=== PATIENT | female | born 1960 | race Caucasian/White ===

== ENCOUNTER 2018-01-19 01:54 | Emergency (ER) | payer BC ==
--- NOTE | 2018-01-19 02:36 | EDM.PDOC ---
ED HPI GENERAL MEDICAL PROBLEM - General Chief Complaint: ENT Problem Stated Complaint: POSSIBLE EAR INFECTION Time Seen by Provider: 01/19/18 02:11 Source of Information: Reports: Patient, Family () History Limitations: Reports: No Limitations - History of Present Illness INITIAL COMMENTS - FREE TEXT/NARRATIVE: The patient states that she has had nasal congestion and rhinorrhea, and a dry cough since last week. No recent fever. She is taking Mucomyst [place], and , this morning, Flonase, with questionable relief. She states that her nasal congestion became worse on 01/16/2018, then last night around 21:30, she developed right ear pain. She went to bed. She states that she rolled over around midnight, and her right ear pain became significantly worse. No drainage from the ear. She reports decreased hearing in her right ear. No prior similar symptoms. The patient's PCP is Yana Dominique. Right Ear Pain Score (Numeric/FACES): 8 - Related Data Allergies Allergy/AdvReac Type Severity Reaction Status Date / Time latex Allergy Rash Verified 01/19/18 02:06 Home Meds: Home Meds Lisinopril 10 mg PO DAILY 01/19/18 [History] Past Medical History HEENT History: Reports: Allergic Rhinitis Cardiovascular History: Reports: Hypertension - Past Surgical History HEENT Surgical History: Reports: Tonsillectomy Female Surgical History: Reports: Hysterectomy, Other (See Below) (Bladder neck fascial sling) Social & Family History - Family History Family Medical History: Noncontributory - Tobacco Use Smoking Status *Q: Never Smoker - Alcohol Use Alcohol Use History: Yes Alcohol Use Frequency: Socially - Recreational Drug Use Recreational Drug Use: No - Living Situation & Occupation Living situation: Reports: , with Spouse 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 ED EXAM, ENT - Physical Exam Exam: See Below Exam Limited By: No Limitations General Appearance: Alert, WD/WN, No Apparent Distress Eye Exam: Bilateral Eye: Normal Inspection Ears: Normal External Exam, Other (Left external canal and tympanic membrane normal. Right external canal normal, but significant erythema to the right tympanic membrane. Clear fluid is seen behind the TM. The TM is likely bulging.) Nose: Normal Inspection, No Blood, Other (Bilateral nasal mucosal edema) Mouth/Throat: Normal Inspection, Normal Gums, Normal Lips, Normal Oropharynx, Normal Teeth Head: Atraumatic, Normocephalic Neck: Normal Inspection, Supple, Non-Tender, Full Range of Motion. No: Lymphadenopathy (L), Lymphadenopathy (R) Respiratory/Chest: No Respiratory Distress, Lungs Clear, Normal Breath Sounds, No Accessory Muscle Use Cardiovascular: Normal Peripheral Pulses, Regular Rate, Rhythm, No Edema, No Gallop, No JVD, No Murmur, No Rub GI/Abdominal: Normal Bowel Sounds, Soft, Non-Tender, No Organomegaly, No Distention, No Abnormal Bruit, No Mass (Female) Exam: Deferred Rectal (Female) Exam: Deferred Extremities: Normal Inspection, Normal Range of Motion, No Pedal Edema, Normal Capillary Refill Neurological: Alert, Oriented, Normal Cognition, No Motor/Sensory Deficits Psychiatric: Normal Affect Skin: Warm, Dry, Intact, Normal Color, No Rash Course - Vital Signs Last Recorded V/S: Last Vital Signs Temp 36.5 C 01/19/18 02:04 Pulse 82 01/19/18 02:04 Resp 18 01/19/18 02:04 BP 201/98 H 01/19/18 02:04 Pulse Ox 98 01/19/18 02:04 - Re-Assessments/Exams Free Text/Narrative Re-Assessment/Exam: 01/19/18 02:25 The patient appears to have right serous otitis media, likely secondary to a viral URI, but possibly related to allergic rhinitis. The patient is already taking Flonase, which I would encourage her to continue, but in order to get prompt relief of her ear pain, I'm recommending she use gkpr-slc-cusmaug oxymetazoline nasal spray, in addition to nasal saline spray. Departure - Departure Time of Disposition: 02:26 Disposition: Home, Self-Care 01 Condition: Good Clinical Impression: Acute serous otitis media, right ear, Viral URI with cough - Discharge Information Instructions: Otitis Media, Adult, [id number], Upper Respiratory Infection, Adult, [id number]-[id number] Referrals: Yana Dominique, [employer] [Primary Care Provider] - Forms: ED Department Discharge Additional Instructions: You were seen in the emergency room for right ear pain. On examination, you appear to have serous otitis media of the right ear. This is caused by fluid being trapped in your middle ear. It is not an infection, therefore antibiotics are not indicated. Purchase oics-cgc-xzdtqzu oxymetazoline in a "pump mist" bottle. [place] one spray up each nostril, wait 5 minutes, then spray a second spray up each nostril. Repeat every 12 hours, for maximum of 5 days. Also purchase fbwu-qni-bjbogtt nasal saline spray in a pressurized can, such as "Simply Saline". [place] this up each nostril many times per day. You may continue to use Flonase nasal spray. Take zrca-thm-riulnvz ibuprofen as needed for discomfort. If your symptoms persist into next week, please follow-up with your PCP, Yana Dominique. If any other problems, please do not hesitate to return to the ER.
== END 2018-01-19 02:40 | disposition home or self-care (01) ==
LOC: JD.ED 01:54
DX: J06.9 Acute upper respiratory infection, unspecified (principal); H65.01 Acute serous otitis media, right ear; Z91.040 Latex allergy status
CPT/HCPCS: 99282; 99283

== ENCOUNTER 2018-01-20 04:33 | Inpatient (IN) | payer BC ==
--- NOTE | 2018-01-20 05:15 | EDM.PDOC ---
<Tommy Guzman - Last Filed: 01/20/18 06:40> ED HPI GENERAL MEDICAL PROBLEM - General Chief Complaint: Gastrointestinal Problem Stated Complaint: HIGH FEVER THROWING UP EAR ACHE Time Seen by Provider: 01/20/18 04:51 Source of Information: Reports: Patient, Family () History Limitations: Reports: No Limitations - History of Present Illness INITIAL COMMENTS - FREE TEXT/NARRATIVE: The patient was seen by me in this ED early yesterday morning, with a complaint of nasal congestion, rhinorrhea, and dry cough since last week. No fever. She had been taking qauc-bjr-xyohuvk Mucomyst, [place], and Flonase, with questionable relief. Her congestion became worse on 01/16/2018, and then on Tuesday evening, 01/18/2018, she developed right ear pain. Her pain became significantly worse, prompting her ED visit early yesterday morning. At that time, there has not been any drainage from the ear, but she did have decreased hearing in the right ear. On physical examination, the patient had findings consistent with serous otitis media, with erythema and bulging of the tympanic membrane, but no purulence. I recommended phdk-yyt-niklrvl oxymetazoline nasal spray as well as saline nasal spray, which the patient states she purchased shortly after discharge, and used as directed. She states that she initially had relief of her symptoms, however, yesterday morning she developed bloody drainage from the ear. She followed up with her PCP, Yana Dominique, who found that the patient's tympanic membrane had ruptured. Ear drops were prescribed. The patient tells me that she has had watery diarrhea for the past 2 days, along with nausea and emesis that began yesterday. She developed a fever tonight , possibly around 104 at home, although 101.1 here in the ED. The patient had taken ibuprofen yesterday morning, but none since. The patient denies having a sore throat. The patient clarifies that she has had a cough occasionally productive of yellow sputum for about 2 weeks. She denies having any urinary symptoms. She has upper abdominal pain only when vomiting. Here in the ED, the patient is found to be tachycardic. The patient did receive an influenza vaccine this season. - Related Data Allergies Allergy/AdvReac Type Severity Reaction Status Date / Time latex Allergy Rash Verified 01/19/18 02:06 Home Meds: Home Meds Lisinopril 10 mg PO DAILY 01/19/18 [History] Past Medical History HEENT History: Reports: Allergic Rhinitis Cardiovascular History: Reports: Hypertension - Past Surgical History HEENT Surgical History: Reports: Tonsillectomy Female Surgical History: Reports: Hysterectomy, Other (See Below) (Bladder neck fascial sling) Social & Family History - Family History Family Medical History: Noncontributory - Tobacco Use Smoking Status *Q: Never Smoker Second Hand Smoke Exposure: No - Alcohol Use Alcohol Use History: Yes Alcohol Use Frequency: Socially - Recreational Drug Use Recreational Drug Use: No - Living Situation & Occupation Living situation: Reports: , with Spouse 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 ED EXAM, GENERAL - Physical Exam Exam: See Below Exam Limited By: No Limitations General Appearance: Alert, WD/WN, No Apparent Distress Eye Exam: Bilateral Eye: Normal Inspection Ears: Normal External Exam, Other (Left external canal and TM normal. Right external canal normal, but findings consistent with perforated TM on the right. No blood seen.) Nose: Normal Inspection, No Blood, Other (Bilateral nasal mucosal edema) Throat/Mouth: Normal Inspection, Normal Lips, Normal Teeth, Normal Gums, Normal Oropharynx, Normal Voice, No Airway Compromise Head: Atraumatic, Normocephalic Neck: Normal Inspection, Supple, Non-Tender, Full Range of Motion. No: Lymphadenopathy (L), Lymphadenopathy (R) Respiratory/Chest: No Respiratory Distress, Lungs Clear, Normal Breath Sounds, No Accessory Muscle Use Cardiovascular: Normal Peripheral Pulses, No Edema, No Gallop, No JVD, No Murmur , No Rub, Tachycardia (regular) Peripheral Pulses: 4+: Radial (L), Radial (R) GI/Abdominal: Normal Bowel Sounds, Soft, Non-Tender, No Organomegaly, No Distention, No Abnormal Bruit, No Mass (Female) Exam: Deferred Rectal (Female) Exam: Deferred Back Exam: Normal Inspection, Full Range of Motion, NT Extremities: Normal Inspection, Normal Range of Motion, No Pedal Edema, Normal Capillary Refill Neurological: Alert, Oriented, Normal Cognition, No Motor/Sensory Deficits Psychiatric: Normal Affect Skin Exam: Warm, Dry, Intact, Normal Color, No Rash EKG INTERPRETATION EKG Date: 01/20/18 Time: 04:56 Rhythm: Other (Sinus tachycardia) Rate (Beats/Min): 115 Mcdonald: Normal P-Wave: Present QRS: Normal ST-T: Normal QT: Normal Comparison: NA - No Prior EKG Course - Vital Signs Last Recorded V/S: Last Vital Signs Temp 101.2 F H 01/20/18 04:40 Pulse 132 H 01/20/18 04:40 Resp 16 01/20/18 04:40 BP 141/72 H 01/20/18 04:40 Pulse Ox 93 L 01/20/18 04:40 Orthostatic Blood Pressure [ 124/64 Standing] Orthostatic Blood Pressure [ 126/58 Supine] - Orders/Labs/Meds Orders: Active Orders 24 hr Category Date Time Status EKG Documentation Completion [RC] STAT Care 01/20/18 05:01 Active Orthostatic Vital Signs [RC] STAT Care 01/20/18 05:01 Active Orthostatic Vital Signs [RC] STAT Care 01/20/18 05:16 Active Chest 2V [CR] Stat Exams 01/20/18 05:10 Taken CULTURE BLOOD [BC] Stat Lab 01/20/18 05:12 Ordered CULTURE BLOOD [BC] Stat Lab 01/20/18 05:12 Ordered INFLUENZA A+B AG SCREEN [RM] Stat Lab 01/20/18 05:25 Ordered Sodium Chloride 0.9% [Normal Saline] 500 ml Med 01/20/18 06:45 Active IV .BOLUS cefTRIAXone [Rocephin] 2 gm Med 01/20/18 07:40 Active Sodium Chloride 0.9% [Normal Saline] 100 ml IV ONETIME Blood Culture x2 Reflex Set [OM.PC] Stat Oth 01/20/18 05:12 Ordered Medication Orders Sodium Chloride (Normal Saline) 500 mls @ 300 mls/hr IV .BOLUS ONE Stop: 01/20/18 08:24 Last Admin: 01/20/18 06:48 Dose: 300 mls/hr Ceftriaxone Sodium 2 gm/ (Sodium Chloride) 100 mls @ 100 mls/hr IV ONETIME ONE Stop: 01/20/18 08:39 Labs: Laboratory Tests 01/20/18 01/20/18 01/20/18 Range/Units 05:10 05:10 06:10 WBC 13.58 H (3.98-10.04) K/mm3 RBC 4.48 (3.98-5.22) M/mm3 Hgb 13.5 (11.2-15.7) gm/L Hct 40.2 (34.1-44.9) % MCV 89.7 (79.4-94.8) fl MCH 30.1 (25.6-32.2) pg MCHC 33.6 (32.2-35.5) g/dl RDW Std Deviation 45.9 (36.4-46.3) fL Plt Count 228 (182-369) K/mm3 MPV 9.6 (9.4-12.3) fl Neutrophils % (Manual) 86 H (40-60) % Band Neutrophils % 0 (0-10) % Lymphocytes % (Manual) 5 L (20-40) % Atypical Lymphs % 0 % Monocytes % (Manual) 9 (2-10) % Eosinophils % (Manual) 0 L (0.7-5.8) % Basophils % (Manual) 0 L (0.1-1.2) Platelet Estimate Adequate Plt Morphology Comment Normal RBC Morph Comment Normal Sodium 136 (136-145) mEq/L Potassium 3.5 (3.5-5.1) mEq/L Chloride 97 L (98-107) mEq/L Carbon Dioxide 25 (21-32) mEq/L Anion Gap 17.5 H (5-15) BUN 12 (7-18) mg/dL Creatinine 1.2 H (0.55-1.02) mg/dL Est Cr Clr Drug Dosing 45.74 mL/min Estimated GFR (MDRD) 47 (>60) mL/min BUN/Creatinine Ratio 10.0 L (14-18) Glucose 157 H (74-106) mg/dL Lactic Acid 2.2 H (0.4-2.0) mmol/L Calcium 9.0 (8.5-10.1) mg/dL Magnesium 1.4 L (1.8-2.4) mg/dl Total Bilirubin 0.8 (0.2-1.0) mg/dL AST 29 (15-37) U/L ALT 62 H (14-59) U/L Alkaline Phosphatase 130 H (46-116) U/L Total Protein 7.6 (6.4-8.2) g/dl Albumin 3.8 (3.4-5.0) g/dl Globulin 3.8 gm/dL Albumin/Globulin Ratio 1.0 (1-2) Meds: Medications Generic Name Dose Route Start Last Admin Trade Name Freq PRN Reason Stop Dose Admin Sodium Chloride 500 mls @ 300 mls/hr 01/20/18 06:45 01/20/18 06:48 Normal Saline IV 01/20/18 08:24 300 mls/hr .BOLUS ONE Administration Ceftriaxone Sodium 2 gm/ 100 mls @ 100 mls/hr 01/20/18 07:40 Sodium Chloride IV 01/20/18 08:39 ONETIME ONE Discontinued Medications Generic Name Dose Route Start Last Admin Trade Name Freq PRN Reason Stop Dose Admin Sodium Chloride 1,000 mls @ 999 mls/hr 01/20/18 05:16 01/20/18 05:20 Normal Saline IV 01/20/18 06:16 999 mls/hr ONETIME ONE Administration Magnesium Sulfate 2 gm/ Premix 50 mls @ 50 mls/hr 01/20/18 05:49 01/20/18 06: 49 IV 01/20/18 06:48 50 mls/hr ONETIME ONE Administration Sodium Chloride Confirm 01/20/18 06:44 01/20/18 06:49 Normal Saline Administered 01/20/18 06:45 Not Given Dose 1,000 mls @ as directed .ROUTE .STK-MED ONE - Re-Assessments/Exams Free Text/Narrative Re-Assessment/Exam: 01/20/18 04:50 The patient is orthostatic. She will receive 1 L NS, followed by repeat orthostatics. 01/20/18 05:43 2-view chest radiograph reviewed. Cardiac silhouette is within normal limits. No pulmonary vascular congestion. No pleural effusions. There is an irregular opacity measuring approximately 3 cm x 5 cm in the left lower lungfield as seen on the PA view, but not on the lateral view, suggesting that it may be in the left breast. No pneumothorax. Formal read per the Radiologist pending. I will order a CT of the chest with IV contrast to determine if the opacity seen on the chest radiograph is in the lung or not. 01/20/18 05:50 The patient's magnesium level has returned low at 1.4. I have ordered a 2 g Mg- rider. 01/20/18 06:[address] Gomes, and care of the patient turned over to him at this time, for change of shift. Departure - Departure Disposition: Admitted As Inpatient 68 Clinical Impression: Pneumonia Qualifiers: Pneumonia type: due to unspecified organism Laterality: left Lung location: lower lobe of lung Qualified Code(s): J18.1 - Lobar pneumonia, unspecified organism Right otitis media Qualifiers: Otitis media type: serous Chronicity: acute Recurrence: not specified as recurrent Qualified Code(s): H65.01 - Acute serous otitis media, right ear Tympanic membrane perforation Qualifiers: Laterality: right Qualified Code(s): H72.91 - Unspecified perforation of tympanic membrane, right ear - Discharge Information Referrals: Yana Dominique, [employer] [Primary Care Provider] - Forms: ED Department Discharge - My Orders Last 24 Hours: My Active Orders 01/20/18 06:45 Sodium Chloride 0.9% [Normal Saline] 500 ml IV .BOLUS 01/20/18 07:40 cefTRIAXone [Rocephin] 2 gm Sodium Chloride 0.9% [Normal Saline] 100 ml IV ONETIME - Assessment/Plan Last 24 Hours: My Active Orders 01/20/18 06:45 Sodium Chloride 0.9% [Normal Saline] 500 ml IV .BOLUS 01/20/18 07:40 cefTRIAXone [Rocephin] 2 gm Sodium Chloride 0.9% [Normal Saline] 100 ml IV ONETIME <Fernando Gomes - Last Filed: 01/20/18 07:52> Course - Re-Assessments/Exams Free Text/Narrative Re-Assessment/Exam: 01/20/18 07:[address] Guzman. Her CT shows focal consolidation within the left lung base. Findings most likely due to pneumonia. Follow-up chest x-ray recommended several weeks after clinical therapy is complete to make sure findings resolve. Moderate sized hiatal hernia fatty infiltration is seen within the liver. Her oxygen saturations dropped to 88% here in the ER. I put her on some oxygen and gave her a dose of rocephin 2 grams IV. Her WBC was elevated at 13.58. Her lactic acid was elevated at 2.2. I feel the patient needs to be admitted. I called the hospitalist service and they agreed to the admission. Departure - Departure Time of Disposition: 07:50 Condition: Fair
[2018-01-20] MEDS ORDERED: Sodium Chloride 0.9% 1,000 ML IV ONE (05:16)
[2018-01-20] MEDS ORDERED: Magnesium Sulfate/Water 2 GM in Premix Bag 1 BAG IV ONE (05:49)
[2018-01-20] MEDS ORDERED: Sodium Chloride 0.9% 1,000 ML ONE (06:44)
[2018-01-20] MEDS ORDERED: Sodium Chloride 0.9% 500 ML IV ONE (06:45)
--- NOTE | 2018-01-20 07:12 | CT ---
CT chest Technique: Multiple axial sections through the chest were obtained. Intravenous contrast was utilized. Comparison: No prior chest imaging is available. Findings: Focal area of consolidation is seen within the left lung base with air bronchograms. Lungs otherwise are clear. Moderate sized hiatal hernia is seen. Diffuse fatty infiltration is noted within the liver. No pericardial thickening is seen. Mediastinum and hilar regions show no adenopathy or mass. No axillary adenopathy is seen. No pericardial thickening is noted. Bone window settings were reviewed which shows slight degenerative change within the spine. Impression: 1. Focal consolidation within the left lung base. Findings most likely due to pneumonia. Follow-up chest x-ray recommended several weeks after clinical therapy is complete to make sure findings resolve. 2. Moderate sized hiatal hernia fatty infiltration is seen within the liver. Diagnostic code #3
[2018-01-20] MEDS ORDERED: cefTRIAXone 2 GM in Sodium Chloride 0.9% 100 ML IV ONE (07:40)
[2018-01-20] MEDS ORDERED: Acetaminophen 325 MG Tab PO ONE (07:59)
[2018-01-20] MEDS ORDERED: Sodium Chloride 0.9% 1,000 ML IV SCH (09:30)
--- NOTE | 2018-01-20 10:03 | CR ---
Chest: Two views of the chest were obtained. Comparison: Subsequent chest CT performed later on the same day. Parenchymal density is seen within the left base. Right lung and left upper lung are clear. Heart size and mediastinum are normal. Bony structures are unremarkable. Impression: 1. Left lower lobe parenchymal density most likely representing pneumonia. Diagnostic code #3
--- NOTE | 2018-01-20 11:46 | PCM.HP ---
H&P History of Present Illness - General Date of Service: 01/20/18 Admit Problem/Dx: Admission Diagnosis/Problem Admission Diagnosis/Problem Sepsis - History of Present Illness Initial Comments - Free Text/Narative: 57 year old female with failed antibiotic therapy initially prescribed for eva media; she was seen on two occasions in the ED as well as onec by her PCP. The symptoms have been progressing; she currently describes symptoms that have worsened over 24-48 hours of N/V, F/C as well as malaise. She has had a productive cough of yellow sputum for at least one week. The patient works around [employer], thus sick contact can not be excluded. Her PCP as well as the ED MD documented a perforated right TM. CT of chest confirmed possible LLL infiltrate suggested by a CXR. She received the influenza vaccine this past winter. Onset of Symptoms: Reports: Gradual Symptom Onset Date: 01/11/18 Duration of Symptoms: Reports: Week(s):, Getting Worse Location: Reports: Chest, Generalized Quality: Reports: Same as Previous Episode Severity: Moderate Improves with: Reports: Medication Worsens with: Reports: None Context: Reports: Sick Contact (cannot be excluded) Associated Symptoms: Reports: Chest Pain, cough w sputum, Loss of Appetite, Malaise, Nausea/Vomiting, Shortness of Breath, Weakness - Related Data Allergies/Adverse Reactions: Allergies Allergy/AdvReac Type Severity Reaction Status Date / Time latex Allergy Rash Verified 01/19/18 02:06 Home Medications: Home Meds Lisinopril 10 mg PO DAILY 01/19/18 [History] Ciprofloxacin HCl/Dexameth [Ciprodex Otic Suspension] 4 drop EARRT BID 01/20/18 [History] Escitalopram [Lexapro] 20 mg PO DAILY 01/20/18 [History] Oxymetazoline HCl [Nasal [place]] 1 spray NS BID 01/20/18 [History] Sodium Chloride [Saline Nasal [place]] 1 spray NS ASDIRECTED PRN 01/20/18 [History ] Past Medical History - Past Health History Medical/Surgical History: Denies Medical/Surgical History HEENT History: Reports: Allergic Rhinitis, Otitis Media, Sinusitis, Other (See Below) Other HEENT History: chronic dry eye Cardiovascular History: Reports: Hypertension Respiratory History: Reports: Other (See Below) Other Respiratory History: bronchitis. 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: Psychiatric History: Reports: Anxiety, Depression Other Psychiatric History: help w/ menopause Endocrine/Metabolic History: Reports: None Hematologic History: Reports: Anemia, Iron Deficiency Other Hematologic History: anemia when younger, lifestyle changes - Infectious Disease History Infectious Disease History: Reports: Chicken Pox - Past Surgical History HEENT Surgical History: Reports: Tonsillectomy Cardiovascular Surgical History: Reports: None Respiratory Surgical History: Reports: None GI Surgical History: Reports: None Female Surgical History: Reports: Hysterectomy, Other (See Below) Other Female Surgeries/Procedures: bladder surgery by Dr. 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) H&P Review of Systems - Review of Systems: Review Of Systems: See Below General: Reports: Fever, Chills, Malaise, Weakness, Decreased Appetite HEENT: Reports: No Symptoms Pulmonary: Reports: Shortness of Breath, Wheezing Cardiovascular: Reports: No Symptoms Gastrointestinal: Reports: No Symptoms Genitourinary: Reports: No Symptoms Musculoskeletal: Reports: No Symptoms Skin: Reports: No Symptoms Psychiatric: Reports: No Symptoms Neurological: Reports: No Symptoms Hematologic/Lymphatic: Reports: No Symptoms Immunologic: Reports: No Symptoms Exam - Exam Exam: See Below - Vital Signs Vital Signs: Last Vital Signs Temp 36.9 C 01/20/18 11:36 Pulse 93 01/20/18 11:36 Resp 16 01/20/18 11:36 BP 125/52 L 01/20/18 11:36 Pulse Ox 93 L 01/20/18 11:36 Orthostatic Blood Pressure [ 124/64 Standing] Orthostatic Blood Pressure [ 126/58 Supine] Weight: 72.575 kg - Exam Quality Assessment: Supplemental Oxygen, DVT Prophylaxis General: Alert, Oriented, Cooperative, Mild Distress HEENT: Conjunctiva Clear, Nares Patent, Normal Nasal Septum, Pupils Equal, Pupils Reactive, PERRLA Neck: Trachea Midline Lungs: Normal Respiratory Effort, Decreased Breath Sounds Cardiovascular: Regular Rate, Tachycardia GI/Abdominal Exam: Normal Bowel Sounds, Soft, Non-Tender, No Organomegaly, No Distention (Female) Exam: Deferred Rectal (Female) Exam: Deferred Back Exam: Normal Inspection Extremities: Normal Inspection, Non-Tender, Slow Capillary Refill Skin: Warm Neurological: Cranial Nerves Intact, Normal Speech Neuro Extensive - Mental Status: Alert, Oriented x3, Normal Mood/Affect, Normal Cognition, Memory Intact Neuro Extensive - Motor, Sensory, Reflexes: CN II-XII Intact Psychiatric: Alert, Normal Affect, Normal Mood - Patient Data Lab Results Last 24 hrs: Laboratory Results - last 24 hr 01/20/18 01/20/18 01/20/18 Range/Units 05:10 05:10 06:10 WBC 13.58 H (3.98-10.04) K/mm3 RBC 4.48 (3.98-5.22) M/mm3 Hgb 13.5 (11.2-15.7) gm/L Hct 40.2 (34.1-44.9) % MCV 89.7 (79.4-94.8) fl MCH 30.1 (25.6-32.2) pg MCHC 33.6 (32.2-35.5) g/dl RDW Std Deviation 45.9 (36.4-46.3) fL Plt Count 228 (182-369) K/mm3 MPV 9.6 (9.4-12.3) fl Neutrophils % (Manual) 86 H (40-60) % Band Neutrophils % 0 (0-10) % Lymphocytes % (Manual) 5 L (20-40) % Atypical Lymphs % 0 % Monocytes % (Manual) 9 (2-10) % Eosinophils % (Manual) 0 L (0.7-5.8) % Basophils % (Manual) 0 L (0.1-1.2) Platelet Estimate Adequate Plt Morphology Comment Normal RBC Morph Comment Normal Sodium 136 (136-145) mEq/L Potassium 3.5 (3.5-5.1) mEq/L Chloride 97 L (98-107) mEq/L Carbon Dioxide 25 (21-32) mEq/L Anion Gap 17.5 H (5-15) BUN 12 (7-18) mg/dL Creatinine 1.2 H (0.55-1.02) mg/dL Est Cr Clr Drug Dosing 45.74 mL/min Estimated GFR (MDRD) 47 (>60) mL/min BUN/Creatinine Ratio 10.0 L (14-18) Glucose 157 H (74-106) mg/dL Lactic Acid 2.2 H (0.4-2.0) mmol/L Calcium 9.0 (8.5-10.1) mg/dL Magnesium 1.4 L (1.8-2.4) mg/dl Total Bilirubin 0.8 (0.2-1.0) mg/dL AST 29 (15-37) U/L ALT 62 H (14-59) U/L Alkaline Phosphatase 130 H (46-116) U/L Total Protein 7.6 (6.4-8.2) g/dl Albumin 3.8 (3.4-5.0) g/dl Globulin 3.8 gm/dL Albumin/Globulin Ratio 1.0 (1-2) /18 Range/Units 09:05 WBC (3.98-10.04) K/mm3 RBC (3.98-5.22) M/mm3 Hgb (11.2-15.7) gm/L Hct (34.1-44.9) % MCV (79.4-94.8) fl MCH (25.6-32.2) pg MCHC (32.2-35.5) g/dl RDW Std Deviation (36.4-46.3) fL Plt Count (182-369) K/mm3 MPV (9.4-12.3) fl Neutrophils % (Manual) (40-60) % Band Neutrophils % (0-10) % Lymphocytes % (Manual) (20-40) % Atypical Lymphs % % Monocytes % (Manual) (2-10) % Eosinophils % (Manual) (0.7-5.8) % Basophils % (Manual) (0.1-1.2) Platelet Estimate Plt Morphology Comment RBC Morph Comment Sodium (136-145) mEq/L Potassium (3.5-5.1) mEq/L Chloride (98-107) mEq/L Carbon Dioxide (21-32) mEq/L Anion Gap (5-15) BUN (7-18) mg/dL Creatinine (0.55-1.02) mg/dL Est Cr Clr Drug Dosing mL/min Estimated GFR (MDRD) (>60) mL/min BUN/Creatinine Ratio (14-18) Glucose (74-106) mg/dL Lactic Acid 1.1 (0.4-2.0) mmol/L Calcium (8.5-10.1) mg/dL Magnesium (1.8-2.4) mg/dl Total Bilirubin (0.2-1.0) mg/dL AST (15-37) U/L ALT (14-59) U/L Alkaline Phosphatase (46-116) U/L Total Protein (6.4-8.2) g/dl Albumin (3.4-5.0) g/dl Globulin gm/dL Albumin/Globulin Ratio (1-2) Result Diagrams: 01/21/18 06:10 01/21/18 06:10 [place] Results Last 24 hrs: Microbiology 01/20/18 05:25 Influenza Type A Antigen Screen - Final Nasopharyngeal Swab NEGATIVE INFLUENZA A VIRUS AG Influenza Type B Antigen Screen - Final NEGATIVE INFLUENZA B VIRUS AG Problem List Initiated/Reviewed/Updated: Yes Orders Last 24hrs: Active Orders 24 hr Category Date Time Status Patient Status [ADT] Routine ADT 01/20/18 10:09 Active EKG Documentation Completion [RC] STAT Care 01/20/18 05:01 Active Orthostatic Vital Signs [RC] STAT Care 01/20/18 05:01 Active Orthostatic Vital Signs [RC] STAT Care 01/20/18 05:16 Active CULTURE BLOOD [BC] Stat Lab 01/20/18 05:12 Ordered CULTURE BLOOD [BC] Stat Lab 01/20/18 05:12 Ordered INFLUENZA A+B AG SCREEN [RM] Stat Lab 01/20/18 05:25 Ordered Sodium Chloride 0.9% [Normal Saline] 1,000 ml Med 01/20/18 09:30 Active IV ASDIRECTED Sodium Chloride 0.9% [Normal Saline] 650 ml Med 01/20/18 08:30 Active IV ASDIRECTED Blood Culture x2 Reflex Set [OM.PC] Stat Oth 01/20/18 05:12 Ordered Medication Orders Sodium Chloride (Normal Saline) 650 mls @ 1,000 mls/hr IV ASDIRECTED SARAH Sodium Chloride (Normal Saline) 1,000 mls @ 100 mls/hr IV ASDIRECTED SARAH Last Admin: 01/20/18 09:29 Dose: 100 mls/hr Assessment/Plan Comment:: Impression: LLL infiltrate, CAP Ruptured right TM Acute otitis media Chronic HTN Plan: IVF Antiemetic; advance diet as tolerated. ATB empirically Resp infect work up Droplet Isolation Daily Labs Home meds DVT/GI prophylaxis
[2018-01-20] MEDS ORDERED: Azithromycin 500 MG AdvVial IV SCH (12:00)
[2018-01-20] MEDS ORDERED: Ondansetron 4 MG/2 ML SDV IVPUSH PRN (12:03)
[2018-01-20] MEDS ORDERED: Metoclopramide 10 MG/2 ML SDV IVPUSH PRN (12:03)
[2018-01-20] MEDS: Sodium Chloride 0.9% 1,000 ML IV SCH ×4 (12:16→21:16)
[2018-01-20] MEDS: Azithromycin 500 MG in Sodium Chloride 0.9% 250 ML IV SCH (12:22)
[2018-01-20] MEDS: Enoxaparin 40 MG/0.4 ML Syringe SUBCUT SCH (15:14)
[2018-01-20] MEDS ORDERED: Albuterol/Ipratropium 3.0-0.5 MG/3 ML Neb Soln NEB PRN (18:31)
[2018-01-20] MEDS ORDERED: Albuterol 0.083% 2.5 MG/3 ML Neb Soln NEB PRN (18:34)
[2018-01-20] MEDS: Citalopram 20 MG Tab PO SCH (21:01)
[2018-01-20] MEDS: CIPROFLOXACIN EARRT SCH (21:02)
[2018-01-20] MEDS: DEXAMETHASONE EARRT SCH (21:02)
[2018-01-20] MEDS: Temazepam 7.5 MG Cap PO PRN (21:03)
[2018-01-21] MEDS: guaiFENesin/Dextromethorphan 100-10 MG/5 ML Soln 5 ML Cup PO PRN ×2 (00:33→13:54)
[2018-01-21] MEDS: Sodium Chloride 0.9% 1,000 ML IV SCH (03:41)
[2018-01-21] MEDS ORDERED: cefTRIAXone 2 GM in Sodium Chloride 0.9% 100 ML IV SCH (08:00)
[2018-01-21] MEDS: DEXAMETHASONE EARRT SCH ×2 (08:29→20:41)
[2018-01-21] MEDS: Enoxaparin 40 MG/0.4 ML Syringe SUBCUT SCH (08:29)
[2018-01-21] MEDS: Saccharomyces Boulardii (Probiotic) 250 MG Cap PO SCH (08:29)
[2018-01-21] MEDS: CIPROFLOXACIN EARRT SCH ×2 (08:29→20:41)
[2018-01-21] MEDS: Acetaminophen 325 MG Tab PO PRN ×2 (08:55→16:13)
[2018-01-21] MEDS ORDERED: Citalopram 20 MG Tab PO SCH (09:00)
[2018-01-21] MEDS: Azithromycin 500 MG in Sodium Chloride 0.9% 250 ML IV SCH (11:08)
[2018-01-21] MEDS: Lisinopril 10 MG Tab PO SCH (11:11)
--- NOTE | 2018-01-21 15:47 | PCM.PN ---
- General Info Date of Service: 01/21/18 Functional Status: Reports: Pain Controlled, Tolerating Diet, Ambulating, Urinating - Review of Systems General: Reports: No Symptoms HEENT: Reports: No Symptoms Pulmonary: Reports: No Symptoms Cardiovascular: Reports: No Symptoms Gastrointestinal: Reports: No Symptoms Genitourinary: Reports: No Symptoms Musculoskeletal: Reports: No Symptoms - Patient Data Vitals - Most Recent: Last Vital Signs Temp 36.8 C 01/21/18 11:13 Pulse 82 01/21/18 11:13 Resp 16 01/21/18 11:13 BP 144/77 H 01/21/18 11:13 Pulse Ox 95 01/21/18 11:13 Orthostatic Blood Pressure [ 124/64 Standing] Orthostatic Blood Pressure [ 126/58 Supine] Weight - Most Recent: 72.575 kg I&O - Last 24 Hours: Intake & Output 01/21/18 01/21/18 01/21/18 06:59 14:59 22:59 Intake Total 2632 240 Output Total 3500 Balance -868 240 Lab Results Last 24 Hours: Laboratory Results - last 24 hr 01/21/18 01/21/18 01/21/18 Range/Units 06:10 06:10 06:10 WBC 14.84 H (3.98-10.04) K/mm3 RBC 3.84 L (3.98-5.22) M/mm3 Hgb 11.8 (11.2-15.7) gm/L Hct 35.9 (34.1-44.9) % MCV 93.5 (79.4-94.8) fl MCH 30.7 (25.6-32.2) pg MCHC 32.9 (32.2-35.5) g/dl RDW Std Deviation 50.3 H (36.4-46.3) fL Plt Count 213 (182-369) K/mm3 MPV 9.5 (9.4-12.3) fl Neut % (Auto) 82.1 H (34.0-71.1) % Lymph % (Auto) 11.3 L (19.3-51.7) % [place] % (Auto) 6.1 (4.7-12.5) % Eos % (Auto) 0.1 L (0.7-5.8) Baso % (Auto) 0.1 (0.1-1.2) % Neut # (Auto) 12.16 H (1.56-6.13) K/mm3 Lymph # (Auto) 1.68 (1.18-3.74) K/mm3 [place] # (Auto) 0.91 H (0.24-0.36) K/mm3 Eos # (Auto) 0.02 L (0.04-0.36) K/mm3 Baso # (Auto) 0.02 (0.01-0.08) K/mm3 Manual Slide Review Abnormal smear Sodium 143 (136-145) mEq/L Potassium 3.9 (3.5-5.1) mEq/L Chloride 110 H (98-107) mEq/L Carbon Dioxide 23 (21-32) mEq/L Anion Gap 13.9 (5-15) BUN 8 (7-18) mg/dL Creatinine 0.8 (0.55-1.02) mg/dL Est Cr Clr Drug Dosing 68.61 mL/min Estimated GFR (MDRD) > 60 (>60) mL/min BUN/Creatinine Ratio 10.0 L (14-18) Glucose 114 H (74-106) mg/dL Lactic Acid 1.4 (0.4-2.0) mmol/L Calcium 8.2 L (8.5-10.1) mg/dL Magnesium 2.1 (1.8-2.4) mg/dl C-Reactive Protein 33.4 H* (<1.0) mg/dL [place] Results Last 24 Hours: Microbiology 01/20/18 13:40 Quick Strep Confirmation Culture - Preliminary Throat Group A Streptococcus Rapid Screen - Final NEGATIVE STREP A SCREEN 01/20/18 06:10 Aerobic Blood Culture - Preliminary Blood - Venous NO GROWTH AFTER 1 DAY Anaerobic Blood Culture - Preliminary NO GROWTH AFTER 1 DAY 01/20/18 06:20 Aerobic Blood Culture - Preliminary Blood - Venous - Lab Draw NO GROWTH AFTER 1 DAY Anaerobic Blood Culture - Preliminary NO GROWTH AFTER 1 DAY Med Orders - Current: Current Medications Acetaminophen (Tylenol) 650 mg PO Q6H PRN PRN Reason: Pain/Fever Last Admin: 01/21/18 08:55 Dose: 650 mg Albuterol (Proventil Neb Soln) 2.5 mg NEB Q4HRRT PRN PRN Reason: Shortness of Breath Albuterol/Ipratropium (Duoneb 3.0-0.5 Mg/3 Ml) 3 ml NEB QID PRN PRN Reason: Shortness of Breath Citalopram Hydrobromide (Celexa) 40 mg PO BEDTIME [facility] Last Admin: 01/20/18 21:01 Dose: 40 mg Enoxaparin Sodium (Lovenox) 40 mg SUBCUT DAILY [facility] Last Admin: 01/21/18 08:29 Dose: 40 mg Guaifenesin/Phenylephrine HCl (Robitussin Dm) 10 ml PO QID PRN PRN Reason: cough Last Admin: 01/21/18 13:54 Dose: 10 ml Hydralazine HCl (Apresoline) 20 mg IVPUSH Q6H PRN PRN Reason: Hypertension Azithromycin 500 mg/ Sodium (Chloride) 250 mls @ 250 mls/hr IV Q24H [facility] Last Admin: 01/21/18 11:08 Dose: 250 mls/hr Ceftriaxone Sodium 2 gm/ (Dextrose/Water) 100 mls @ 200 mls/hr IV Q24H [facility] Last Admin: 01/21/18 08:54 Dose: 200 mls/hr Lisinopril (Prinivil) 10 mg PO DAILY [facility] Last Admin: 01/21/18 11:11 Dose: 10 mg Metoclopramide HCl (Reglan) 10 mg IVPUSH Q6H PRN PRN Reason: Nausea/Vomiting Ondansetron HCl (Zofran) 4 mg IVPUSH Q8H PRN PRN Reason: Nausea/Vomiting Ciprofloxacin/Dexamethasone Otic Susp. 0 each EARRT BID [facility] Last Admin: 01/21/18 08:29 Dose: 4 each Saccharomyces Boulardii (Florastor) 250 mg PO DAILY [facility] Last Admin: 01/21/18 08:29 Dose: 250 mg Temazepam (Restoril) 7.5 mg PO BEDTIME PRN PRN Reason: Insomnia Last Admin: 01/20/18 21:03 Dose: 7.5 mg Discontinued Medications Acetaminophen (Tylenol) 975 mg PO NOW ONE Stop: 01/20/18 08:00 Last Admin: 01/20/18 08:05 Dose: 975 mg Azithromycin (Zithromax) 500 mg IV Q24H [facility] Citalopram Hydrobromide (Celexa) 40 mg PO DAILY [facility] Sodium Chloride (Normal Saline) 1,000 mls @ 999 mls/hr IV ONETIME ONE Stop: 01/20/18 06:16 Last Admin: 01/20/18 05:20 Dose: 999 mls/hr Magnesium Sulfate 2 gm/ Premix 50 mls @ 50 mls/hr IV ONETIME ONE Stop: 01/20/18 06:48 Last Admin: 01/20/18 06:49 Dose: 50 mls/hr Sodium Chloride (Normal Saline) 500 mls @ 300 mls/hr IV .BOLUS ONE Stop: 01/20/18 08:24 Last Admin: 01/20/18 06:48 Dose: 300 mls/hr Sodium Chloride (Normal Saline) Confirm Administered Dose 1,000 mls @ as directed .ROUTE .STK-MED ONE Stop: 01/20/18 06:45 Last Admin: 01/20/18 06:49 Dose: Not Given Ceftriaxone Sodium 2 gm/ (Sodium Chloride) 100 mls @ 100 mls/hr IV ONETIME ONE Stop: 01/20/18 08:39 Last Admin: 01/20/18 08:01 Dose: 100 mls/hr Sodium Chloride (Normal Saline) 650 mls @ 1,000 mls/hr IV ASDIRECTED [facility] Sodium Chloride (Normal Saline) 1,000 mls @ 100 mls/hr IV ASDIRECTED [facility] Last Admin: 01/20/18 09:29 Dose: 100 mls/hr Sodium Chloride (Normal Saline) 1,000 mls @ 999 mls/hr IV Q1H [facility] Stop: 01/20/18 13:59 Last Admin: 01/20/18 14:02 Dose: 999 mls/hr Sodium Chloride (Normal Saline) 1,000 mls @ 150 mls/hr IV ASDIRECTED [facility] Last Admin: 01/21/18 03:41 Dose: 150 mls/hr Ceftriaxone Sodium 2 gm/ (Sodium Chloride) 100 mls @ 200 mls/hr IV Q24H [facility] Last Admin: 01/21/18 11:47 Dose: Not Given - Exam Quality Assessment: DVT Prophylaxis General: Alert, Oriented, Cooperative, No Acute Distress HEENT: Pupils Equal, Pupils Reactive, EOMI Neck: Supple, Trachea Midline, No JVD Lungs: Normal Respiratory Effort, Decreased Breath Sounds (L>R), Rhonchi Cardiovascular: Regular Rate GI/Abdominal Exam: Normal Bowel Sounds, Soft, Non-Tender, No Organomegaly, No Distention (Female) Exam: Deferred Back Exam: Normal Inspection Extremities: Normal Inspection Skin: Warm Neurological: No New Focal Deficit Psy/Mental Status: Alert, Normal Affect, Normal Mood - Problem List Review Problem List Initiated/Reviewed/Updated: Yes - My Orders Last 24 Hours: My Active Orders 01/20/18 18:31 Albuterol/Ipratropium [DuoNeb 3.0-0.5 MG/3 ML] 3 ml NEB QID PRN 01/20/18 18:32 RT Aerosol Therapy [RC] ASDIRECTED 01/20/18 18:34 Acetaminophen [Tylenol] 650 mg PO Q6H PRN Albuterol [Proventil Neb Soln] 2.5 mg NEB Q4HRRT PRN 01/20/18 18:35 Activity as Tolerated [RC] .Routine 01/20/18 19:18 Temazepam [Restoril] 7.5 mg PO BEDTIME PRN 01/20/18 20:34 MOHINDER Hose [Antiembolic Hose] [OM.PC] Routine 01/20/18 21:00 Citalopram [Celexa] 40 mg PO BEDTIME Patient's Own Medication [Ptom] 0 each EARRT BID 01/20/18 21:21 RESPIRATORY PANEL BY PCR [MREF] Routine 01/20/18 21:23 Dextromethorphan/guaiFENesin [Robitussin DM] 10 ml PO QID PRN 01/20/18 22:30 Oxygen Therapy [RC] ASDIRECTED 01/21/18 09:00 Saccharomyces Boulardii [Florastor] 250 mg PO DAILY cefTRIAXone [Rocephin] 2 gm Dextrose 5% in Water 100 ml IV Q24H 01/21/18 10:15 Lisinopril [Prinivil] 10 mg PO DAILY 01/21/18 Lunch Soft Diet [DIET] 01/22/18 05:00 BMP [BASIC METABOLIC PANEL,BMP] [CHEM] DAILY CBC WITH AUTO DIFF [HEME] DAILY CRP [C-REACTIVE PROTEIN] [CHEM] DAILY LACTIC ACID [CHEM] DAILY MAGNESIUM [CHEM] DAILY 01/23/18 05:00 BMP [BASIC METABOLIC PANEL,BMP] [CHEM] DAILY CBC WITH AUTO DIFF [HEME] DAILY CRP [C-REACTIVE PROTEIN] [CHEM] DAILY LACTIC ACID [CHEM] DAILY MAGNESIUM [CHEM] DAILY 01/24/18 05:00 BMP [BASIC METABOLIC PANEL,BMP] [CHEM] DAILY CBC WITH AUTO DIFF [HEME] DAILY CRP [C-REACTIVE PROTEIN] [CHEM] DAILY LACTIC ACID [CHEM] DAILY MAGNESIUM [CHEM] DAILY - Plan Plan:: Impression: LLL infiltrate, CAP Ruptured right TM Acute otitis media Chronic HTN Plan: IVF Antiemetic; advance diet as tolerated. ATB empirically Resp infect work up Droplet Isolation Daily Labs Home meds DVT/GI prophylaxis
[2018-01-21] MEDS: hydrALAZINE 20 MG/ML SDV IVPUSH PRN (16:13)
[2018-01-21] MEDS ORDERED: LORazepam 2 MG/ML SDV IVPUSH ONE (17:17)
[2018-01-21] MEDS: Levofloxacin/Dextrose 5%-Water 750 MG in Premix Bag 1 BAG IV SCH (17:41)
[2018-01-21] MEDS ORDERED: Morphine 2 MG/ML Syringe IVPUSH ONE (17:43)
[2018-01-21] MEDS ORDERED: Sodium Chloride 0.45% 1,000 ML IV SCH (20:15)
[2018-01-21] MEDS: Citalopram 20 MG Tab PO SCH (20:41)
[2018-01-21] MEDS: Albuterol/Ipratropium 3.0-0.5 MG/3 ML Neb Soln NEB SCH (21:08)
[2018-01-22] MEDS: Albuterol/Ipratropium 3.0-0.5 MG/3 ML Neb Soln NEB SCH ×3 (06:40→15:57)
[2018-01-22] MEDS ORDERED: Furosemide 20 MG/2 ML VIAL IVPUSH ONE (07:00)
--- NOTE | 2018-01-22 07:55 | CR ---
Chest: Frontal view of the chest was obtained. Comparison: Prior chest CT of 01/20/18 and chest x-ray of 01/20/18. Increasing consolidation within the left base is seen from previous exam. Right lung remains clear. Heart size and mediastinum are normal. Bony structures are grossly intact. Impression: 1. Increasing consolidation within the left lung base presumably due to enlarging pneumonia. Diagnostic code #3 I agree with preliminary report from [facility], finalized at 01/21/18, 7:55 PM Central Time
[2018-01-22] MEDS: Saccharomyces Boulardii (Probiotic) 250 MG Cap PO SCH (08:48)
[2018-01-22] MEDS: Enoxaparin 40 MG/0.4 ML Syringe SUBCUT SCH (08:50)
[2018-01-22] MEDS: DEXAMETHASONE EARRT SCH ×2 (08:51→20:44)
[2018-01-22] MEDS: CIPROFLOXACIN EARRT SCH ×2 (08:51→20:44)
[2018-01-22] MEDS ORDERED: Piperacillin/Tazobactam 4.5 GM in Sodium Chloride 0.9% 100 ML IV ONE (10:00)
[2018-01-22] MEDS: hydrALAZINE 20 MG/ML SDV IVPUSH PRN ×2 (10:07→21:03)
[2018-01-22] MEDS ORDERED: Scopolamine 1.5 MG Transdermal Patch TRDERM PRN (11:00)
--- NOTE | 2018-01-22 13:47 | PCM.PN ---
- General Info Date of Service: 01/22/18 Subjective Update: The patient developed SOB with elevated HR, and BP. She received treatment including NEB as well as Ativan and MSO4; this ppt nausea. Today those symptoms are resolved however she is slightly anxious after the Neb treatment. A 20 minute family was also held with her daughter and , they are all up to date on her lab results as well as the treatment plan. LOS 96 hours is expected at this time. Functional Status: Reports: Ambulating, Urinating - Review of Systems General: Reports: Weakness, Fatigue, Malaise HEENT: Reports: No Symptoms Pulmonary: Reports: No Symptoms Cardiovascular: Reports: Chest Pain (improved) Gastrointestinal: Reports: No Symptoms Genitourinary: Reports: No Symptoms Musculoskeletal: Reports: No Symptoms Skin: Reports: No Symptoms Neurological: Reports: No Symptoms Psychiatric: Reports: No Symptoms, Anxiety (ptt by albuterol) - Patient Data Vitals - Most Recent: Last Vital Signs Temp 37.1 C 01/22/18 03:46 Pulse 101 H 01/22/18 03:46 Resp 16 01/22/18 03:46 BP 142/89 H 01/22/18 03:46 Pulse Ox 95 01/22/18 10:09 Orthostatic Blood Pressure [ 124/64 Standing] Orthostatic Blood Pressure [ 126/58 Supine] Weight - Most Recent: 72.575 kg I&O - Last 24 Hours: Intake & Output 01/21/18 01/22/18 01/22/18 22:59 06:59 14:59 Intake Total 2450 914 Output Total 2200 2575 Balance 250 -1661 Lab Results Last 24 Hours: Laboratory Results - last 24 hr 01/22/18 01/22/18 01/22/18 Range/Units 06:05 06:05 06:05 WBC 13.65 H (3.98-10.04) K/mm3 RBC 3.96 L (3.98-5.22) M/mm3 Hgb 11.8 (11.2-15.7) gm/L Hct 36.1 (34.1-44.9) % MCV 91.2 (79.4-94.8) fl MCH 29.8 (25.6-32.2) pg MCHC 32.7 (32.2-35.5) g/dl RDW Std Deviation 49.1 H (36.4-46.3) fL Plt Count 271 (182-369) K/mm3 MPV 9.4 (9.4-12.3) fl Neut % (Auto) 86.4 H (34.0-71.1) % Lymph % (Auto) 7.9 L (19.3-51.7) % [place] % (Auto) 5.0 (4.7-12.5) % Eos % (Auto) 0 L (0.7-5.8) Baso % (Auto) 0.1 (0.1-1.2) % Neut # (Auto) 11.79 H (1.56-6.13) K/mm3 Lymph # (Auto) 1.08 L (1.18-3.74) K/mm3 [place] # (Auto) 0.68 H (0.24-0.36) K/mm3 Eos # (Auto) 0.00 L (0.04-0.36) K/mm3 Baso # (Auto) 0.02 (0.01-0.08) K/mm3 Manual Slide Review Abnormal smear Sodium 140 (136-145) mEq/L Potassium 3.4 L (3.5-5.1) mEq/L Chloride 106 (98-107) mEq/L Carbon Dioxide 24 (21-32) mEq/L Anion Gap 13.4 (5-15) BUN 5 L (7-18) mg/dL Creatinine 0.7 (0.55-1.02) mg/dL Est Cr Clr Drug Dosing 78.41 mL/min Estimated GFR (MDRD) > 60 (>60) mL/min BUN/Creatinine Ratio 7.1 L (14-18) Glucose 134 H (74-106) mg/dL POC Glucose (70-105) mg/dL Lactic Acid 1.4 (0.4-2.0) mmol/L Calcium 9.1 (8.5-10.1) mg/dL Magnesium 1.9 (1.8-2.4) mg/dl C-Reactive Protein 21.3 H* (<1.0) mg/dL 01/22/18 Range/Units 07:18 WBC (3.98-10.04) K/mm3 RBC (3.98-5.22) M/mm3 Hgb (11.2-15.7) gm/L Hct (34.1-44.9) % MCV (79.4-94.8) fl MCH (25.6-32.2) pg MCHC (32.2-35.5) g/dl RDW Std Deviation (36.4-46.3) fL Plt Count (182-369) K/mm3 MPV (9.4-12.3) fl Neut % (Auto) (34.0-71.1) % Lymph % (Auto) (19.3-51.7) % [place] % (Auto) (4.7-12.5) % Eos % (Auto) (0.7-5.8) Baso % (Auto) (0.1-1.2) % Neut # (Auto) (1.56-6.13) K/mm3 Lymph # (Auto) (1.18-3.74) K/mm3 [place] # (Auto) (0.24-0.36) K/mm3 Eos # (Auto) (0.04-0.36) K/mm3 Baso # (Auto) (0.01-0.08) K/mm3 Manual Slide Review Sodium (136-145) mEq/L Potassium (3.5-5.1) mEq/L Chloride (98-107) mEq/L Carbon Dioxide (21-32) mEq/L Anion Gap (5-15) BUN (7-18) mg/dL Creatinine (0.55-1.02) mg/dL Est Cr Clr Drug Dosing mL/min Estimated GFR (MDRD) (>60) mL/min BUN/Creatinine Ratio (14-18) Glucose (74-106) mg/dL POC Glucose 140 H (70-105) mg/dL Lactic Acid (0.4-2.0) mmol/L Calcium (8.5-10.1) mg/dL Magnesium (1.8-2.4) mg/dl C-Reactive Protein (<1.0) mg/dL [place] Results Last 24 Hours: Microbiology 01/20/18 13:40 Quick Strep Confirmation Culture - Final Throat NEGATIVE FOR BETA STREP Group A Streptococcus Rapid Screen - Final NEGATIVE STREP A SCREEN 01/20/18 06:20 Aerobic Blood Culture - Preliminary Blood - Venous - Lab Draw NO GROWTH AFTER 2 DAYS Anaerobic Blood Culture - Preliminary NO GROWTH AFTER 2 DAYS 01/20/18 06:10 Aerobic Blood Culture - Preliminary Blood - Venous NO GROWTH AFTER 2 DAYS Anaerobic Blood Culture - Preliminary NO GROWTH AFTER 2 DAYS 01/21/18 16:43 Gram Stain - Final Sputum - Expectorated Sputum Culture - Final Med Orders - Current: Current Medications Acetaminophen (Tylenol) 650 mg PO Q6H PRN PRN Reason: Pain/Fever Last Admin: 01/21/18 16:13 Dose: 650 mg Albuterol (Proventil Neb Soln) 2.5 mg NEB Q4HRRT PRN PRN Reason: Shortness of Breath Last Admin: 01/21/18 17:46 Dose: 2.5 mg Albuterol/Ipratropium (Duoneb 3.0-0.5 Mg/3 Ml) 3 ml NEB QIDRT [facility] Last Admin: 01/22/18 10:09 Dose: 3 ml Citalopram Hydrobromide (Celexa) 40 mg PO BEDTIME [facility] Last Admin: 01/21/18 20:41 Dose: 40 mg Enoxaparin Sodium (Lovenox) 40 mg SUBCUT DAILY [facility] Last Admin: 01/22/18 08:50 Dose: 40 mg Guaifenesin/Phenylephrine HCl (Robitussin Dm) 10 ml PO QID PRN PRN Reason: cough Last Admin: 01/21/18 13:54 Dose: 10 ml Hydralazine HCl (Apresoline) 20 mg IVPUSH Q6H PRN PRN Reason: Hypertension Last Admin: 01/22/18 10:07 Dose: 20 mg Levofloxacin/Dextrose 750 mg/ (Premix) 150 mls @ 100 mls/hr IV Q24H [facility] Last Admin: 01/21/18 17:41 Dose: 100 mls/hr Piperacillin Sod/Tazobactam (Sod 4.5 gm/ Sodium Chloride) 100 mls @ 25 mls/hr IV Q8H [facility] Lisinopril (Prinivil) 10 mg PO DAILY [facility] Last Admin: 01/21/18 11:11 Dose: 10 mg Metoclopramide HCl (Reglan) 10 mg IVPUSH Q6H PRN PRN Reason: Nausea/Vomiting Last Admin: 01/21/18 23:09 Dose: 10 mg Miscellaneous Information (Remove Patch) 1 ea TRDERM Q72H [facility] Ondansetron HCl (Zofran) 4 mg IVPUSH Q8H PRN PRN Reason: Nausea/Vomiting Ciprofloxacin/Dexamethasone Otic Susp. 0 each EARRT BID [facility] Last Admin: 01/22/18 08:51 Dose: 4 each Saccharomyces Boulardii (Florastor) 250 mg PO DAILY [facility] Last Admin: 01/22/18 08:48 Dose: 250 mg Scopolamine (Transderm-Scop) 1.5 mg TRDERM Q72H PRN PRN Reason: Nausea/Vomiting Last Admin: 01/22/18 11:37 Dose: 1.5 mg Temazepam (Restoril) 7.5 mg PO BEDTIME PRN PRN Reason: Insomnia Last Admin: 01/20/18 21:03 Dose: 7.5 mg Discontinued Medications Acetaminophen (Tylenol) 975 mg PO NOW ONE Stop: 01/20/18 08:00 Last Admin: 01/20/18 08:05 Dose: 975 mg Albuterol/Ipratropium (Duoneb 3.0-0.5 Mg/3 Ml) 3 ml NEB QID PRN PRN Reason: Shortness of Breath Azithromycin (Zithromax) 500 mg IV Q24H [facility] Citalopram Hydrobromide (Celexa) 40 mg PO DAILY [facility] Furosemide (Lasix) 10 mg IVPUSH ONETIME ONE Stop: 01/22/18 07:01 Last Admin: 01/22/18 07:26 Dose: 10 mg Sodium Chloride (Normal Saline) 1,000 mls @ 999 mls/hr IV ONETIME ONE Stop: 01/20/18 06:16 Last Admin: 01/20/18 05:20 Dose: 999 mls/hr Magnesium Sulfate 2 gm/ Premix 50 mls @ 50 mls/hr IV ONETIME ONE Stop: 01/20/18 06:48 Last Admin: 01/20/18 06:49 Dose: 50 mls/hr Sodium Chloride (Normal Saline) 500 mls @ 300 mls/hr IV .BOLUS ONE Stop: 01/20/18 08:24 Last Admin: 01/20/18 06:48 Dose: 300 mls/hr Sodium Chloride (Normal Saline) Confirm Administered Dose 1,000 mls @ as directed .ROUTE .STK-MED ONE Stop: 01/20/18 06:45 Last Admin: 01/20/18 06:49 Dose: Not Given Ceftriaxone Sodium 2 gm/ (Sodium Chloride) 100 mls @ 100 mls/hr IV ONETIME ONE Stop: 01/20/18 08:39 Last Admin: 01/20/18 08:01 Dose: 100 mls/hr Sodium Chloride (Normal Saline) 650 mls @ 1,000 mls/hr IV ASDIRECTED [facility] Sodium Chloride (Normal Saline) 1,000 mls @ 100 mls/hr IV ASDIRECTED [facility] Last Admin: 01/20/18 09:29 Dose: 100 mls/hr Sodium Chloride (Normal Saline) 1,000 mls @ 999 mls/hr IV Q1H [facility] Stop: 01/20/18 13:59 Last Admin: 01/20/18 14:02 Dose: 999 mls/hr Azithromycin 500 mg/ Sodium (Chloride) 250 mls @ 250 mls/hr IV Q24H [facility] Last Admin: 01/21/18 11:08 Dose: 250 mls/hr Sodium Chloride (Normal Saline) 1,000 mls @ 150 mls/hr IV ASDIRECTED [facility] Last Admin: 01/21/18 03:41 Dose: 150 mls/hr Ceftriaxone Sodium 2 gm/ (Sodium Chloride) 100 mls @ 200 mls/hr IV Q24H [facility] Last Admin: 01/21/18 11:47 Dose: Not Given Ceftriaxone Sodium 2 gm/ (Dextrose/Water) 100 mls @ 200 mls/hr IV Q24H [facility] Last Admin: 01/21/18 08:54 Dose: 200 mls/hr Sodium Chloride (Sodium Chloride 0.45%) 1,000 mls @ 75 mls/hr IV ASDIRECTED [facility] Last Admin: 01/21/18 21:35 Dose: 75 mls/hr Vancomycin HCl 1 gm/ Sodium (Chloride) 250 mls @ 250 mls/hr IV ONETIME ONE Stop: 01/21/18 21:14 Last Admin: 01/21/18 20:35 Dose: 250 mls/hr Piperacillin Sod/Tazobactam (Sod 4.5 gm/ Sodium Chloride) 100 mls @ 200 mls/hr IV ONETIME ONE Stop: 01/22/18 10:29 Last Admin: 01/22/18 10:55 Dose: 200 mls/hr Lorazepam (Ativan) 1 mg IVPUSH ONETIME ONE Stop: 01/21/18 17:18 Last Admin: 01/21/18 17:41 Dose: 0.5 mg Morphine Sulfate (Morphine) 1 mg IVPUSH ONETIME ONE Stop: 01/21/18 17:44 Last Admin: 01/21/18 18:28 Dose: 1 mg - Exam Quality Assessment: DVT Prophylaxis General: Alert, Oriented, Cooperative, No Acute Distress HEENT: Pupils Equal, Pupils Reactive, EOMI Neck: Trachea Midline, No JVD Lungs: Normal Respiratory Effort, Decreased Breath Sounds Cardiovascular: Regular Rate, Regular Rhythm GI/Abdominal Exam: Normal Bowel Sounds, Soft, Non-Tender, No Organomegaly, No Distention (Female) Exam: Deferred Back Exam: Normal Inspection Extremities: Normal Inspection Skin: Warm Wound/Incisions: Healing Well Neurological: No New Focal Deficit Psy/Mental Status: Alert, Normal Affect, Normal Mood - Problem List Review Problem List Initiated/Reviewed/Updated: Yes - My Orders Last 24 Hours: My Active Orders 01/21/18 17:16 Blood Culture x2 Reflex Set [OM.PC] Stat 01/21/18 17:21 RT Aerosol Therapy [RC] ASDIRECTED 01/21/18 17:35 CULTURE BLOOD [BC] Stat 01/21/18 17:50 CULTURE BLOOD [BC] Stat 01/21/18 18:00 Levofloxacin/Dextrose 5%-Water [Levaquin in D5W 750 MG/150 ML] 750 mg Premix Bag 1 bag IV Q24H 01/21/18 21:00 Albuterol/Ipratropium [DuoNeb 3.0-0.5 MG/3 ML] 3 ml NEB QIDRT 01/22/18 11:00 Scopolamine [Transderm-Scop] 1.5 mg TRDERM Q72H PRN 01/22/18 18:00 Piperacillin/Tazobactam [Zosyn] 4.5 gm Sodium Chloride 0.9% [Normal Saline] 100 ml IV Q8H 01/22/18 Lunch Full Liquid Diet [DIET] 01/23/18 05:00 BMP [BASIC METABOLIC PANEL,BMP] [CHEM] DAILY CBC WITH AUTO DIFF [HEME] DAILY CRP [C-REACTIVE PROTEIN] [CHEM] DAILY LACTIC ACID [CHEM] DAILY MAGNESIUM [CHEM] DAILY 01/24/18 05:00 BMP [BASIC METABOLIC PANEL,BMP] [CHEM] DAILY CBC WITH AUTO DIFF [HEME] DAILY CRP [C-REACTIVE PROTEIN] [CHEM] DAILY LACTIC ACID [CHEM] DAILY MAGNESIUM [CHEM] DAILY 01/25/18 11:00 Remove Patch 1 ea TRDERM Q72H - Plan Plan:: Impression: LLL infiltrate, CAP; hypoxia resolved after yesterday Nocturnal hypoxia, query sleep apnea. Ruptured right TM Acute otitis media Chronic HTN Plan: IVF Antiemetic; advance diet as tolerated. ATB empirically changed to Levoquin and Zosyn after yesterday, decompensated Scopolamine patch for N/V Resp infect work up Droplet Isolation Daily Labs Home meds DVT/GI prophylaxis
[2018-01-22] MEDS ORDERED: Piperacillin/Tazobactam 4.5 GM in Sodium Chloride 0.9% 100 ML IV SCH (18:00)
[2018-01-22] MEDS ORDERED: Levofloxacin/Dextrose 5%-Water 150 ML IV ONE (18:14)
[2018-01-22] MEDS: Levofloxacin/Dextrose 5%-Water 750 MG in Premix Bag 1 BAG IV SCH (18:37)
[2018-01-22] MEDS: Levalbuterol HCl 1.25 MG/3 ML Neb NEB SCH (20:22)
[2018-01-22] MEDS: Citalopram 20 MG Tab PO SCH (20:43)
[2018-01-22] MEDS: Metoclopramide 10 MG/2 ML SDV IVPUSH SCH (20:44)
[2018-01-22] MEDS: Piperacillin/Tazobactam 4.5 GM in Sodium Chloride 0.9% 100 ML IV SCH (21:51)
[2018-01-22] MEDS: Temazepam 7.5 MG Cap PO PRN (22:39)
[2018-01-23] MEDS: Metoclopramide 10 MG/2 ML SDV IVPUSH SCH (05:47)
[2018-01-23] MEDS: Piperacillin/Tazobactam 4.5 GM in Sodium Chloride 0.9% 100 ML IV SCH (05:52)
[2018-01-23] MEDS: Levalbuterol HCl 1.25 MG/3 ML Neb NEB SCH (06:30)
--- NOTE | 2018-01-23 08:34 | PCM.PN ---
- General Info Date of Service: 01/23/18 Admission Dx/Problem (Free Text): Admission Diagnosis/Problem Admission Diagnosis/Problem Sepsis Subjective Update: In to see Fatou. She is lying in bed. She reports good appetite and no nausea. She is not dizzy at this point. Will advance diet to soft. PT examination ordered due to perforated ear drum and history with nausea/dizziness. She still has a productive cough. Unfortunately her prior sputum sample was insufficient. Will re-order sample. Potassium was quite low at 3.1. Attempted IV supplementation, however she did not tolerate this. Switching to oral supplementation. Labs are improving. She was quite tachycardic with Xopenex so will discontinue that and try just ipratropium. No patient or nursing concerns. Functional Status: Reports: Pain Controlled, Tolerating Diet, Ambulating, Urinating. Denies: New Symptoms - Review of Systems General: Reports: Weakness (improving ), Fatigue (improving ), Malaise ( improving ), Appetite. Denies: Fever HEENT: Reports: Ear Pain. Denies: Eye Pain, Headaches, Sinus Congestion, Sore Throat Pulmonary: Reports: Cough, Sputum. Denies: Shortness of Breath, Wheezing Cardiovascular: Reports: No Symptoms. Denies: Chest Pain, Palpitations, Dyspnea on Exertion, Edema, Lightheadedness Gastrointestinal: Reports: Diarrhea (mild loose stools this AM ). Denies: Abdominal Pain, Constipation, Nausea, Vomiting Genitourinary: Reports: No Symptoms, Dysuria Musculoskeletal: Reports: No Symptoms Skin: Reports: No Symptoms Neurological: Reports: No Symptoms, Change in Speech. Denies: Dizziness, Pre- Existing Deficit, Tingling, Trouble Speaking, Difficulty Walking, Gait Disturbance Psychiatric: Reports: No Symptoms - Patient Data Vitals - Most Recent: Last Vital Signs Temp 98.6 F 01/23/18 01:51 Pulse 101 H 01/23/18 01:51 Resp 18 01/23/18 01:51 BP 126/62 01/23/18 01:51 Pulse Ox 95 01/23/18 02:00 Orthostatic Blood Pressure [ 124/64 Standing] Orthostatic Blood Pressure [ 126/58 Supine] Weight - Most Recent: 165 lb I&O - Last 24 Hours: Intake & Output 01/22/18 01/23/18 01/23/18 22:59 06:59 14:59 Intake Total 7996 1040 Output Total 1934 0715 Balance -1554 -210 Lab Results Last 24 Hours: Laboratory Results - last 24 hr 01/23/18 01/23/18 01/23/18 Range/Units 05:40 05:40 05:40 WBC 12.21 H (3.98-10.04) K/mm3 RBC 3.85 L (3.98-5.22) M/mm3 Hgb 11.6 (11.2-15.7) gm/L Hct 34.8 (34.1-44.9) % MCV 90.4 (79.4-94.8) fl MCH 30.1 (25.6-32.2) pg MCHC 33.3 (32.2-35.5) g/dl RDW Std Deviation 48.0 H (36.4-46.3) fL Plt Count 319 (182-369) K/mm3 MPV 9.5 (9.4-12.3) fl Neut % (Auto) 79.1 H (34.0-71.1) % Lymph % (Auto) 11.2 L (19.3-51.7) % [place] % (Auto) 7.0 (4.7-12.5) % Eos % (Auto) 0.3 L (0.7-5.8) Baso % (Auto) 0.2 (0.1-1.2) % Neut # (Auto) 9.65 H (1.56-6.13) K/mm3 Lymph # (Auto) 1.37 (1.18-3.74) K/mm3 [place] # (Auto) 0.86 H (0.24-0.36) K/mm3 Eos # (Auto) 0.04 (0.04-0.36) K/mm3 Baso # (Auto) 0.02 (0.01-0.08) K/mm3 Manual Slide Review Abnormal smear Sodium 141 (136-145) mEq/L Potassium 3.1 L (3.5-5.1) mEq/L Chloride 106 (98-107) mEq/L Carbon Dioxide 25 (21-32) mEq/L Anion Gap 13.1 (5-15) BUN 7 (7-18) mg/dL Creatinine 0.8 (0.55-1.02) mg/dL Est Cr Clr Drug Dosing 68.61 mL/min Estimated GFR (MDRD) > 60 (>60) mL/min BUN/Creatinine Ratio 8.8 L (14-18) Glucose 108 H (74-106) mg/dL Lactic Acid 0.7 (0.4-2.0) mmol/L Calcium 9.1 (8.5-10.1) mg/dL Magnesium 1.9 (1.8-2.4) mg/dl C-Reactive Protein 11.9 H* (<1.0) mg/dL [place] Results Last 24 Hours: Microbiology 01/20/18 06:20 Aerobic Blood Culture - Preliminary Blood - Venous - Lab Draw NO GROWTH AFTER 3 DAYS Anaerobic Blood Culture - Preliminary NO GROWTH AFTER 3 DAYS 01/20/18 06:10 Aerobic Blood Culture - Preliminary Blood - Venous NO GROWTH AFTER 3 DAYS Anaerobic Blood Culture - Preliminary NO GROWTH AFTER 3 DAYS 01/21/18 17:50 Aerobic Blood Culture - Preliminary Blood - Venous - Lab Draw NO GROWTH AFTER 1 DAY Anaerobic Blood Culture - Preliminary NO GROWTH AFTER 1 DAY 01/21/18 17:35 Aerobic Blood Culture - Preliminary Blood - Venous NO GROWTH AFTER 1 DAY Anaerobic Blood Culture - Preliminary NO GROWTH AFTER 1 DAY 01/20/18 13:40 Quick Strep Confirmation Culture - Final Throat NEGATIVE FOR BETA STREP Group A Streptococcus Rapid Screen - Final NEGATIVE STREP A SCREEN Med Orders - Current: Current Medications Acetaminophen (Tylenol) 650 mg PO Q6H PRN PRN Reason: Pain/Fever Last Admin: 01/21/18 16:13 Dose: 650 mg Albuterol (Proventil Neb Soln) 2.5 mg NEB Q4HRRT PRN PRN Reason: Shortness of Breath Last Admin: 01/21/18 17:46 Dose: 2.5 mg Citalopram Hydrobromide (Celexa) 40 mg PO BEDTIME [facility] Last Admin: 01/22/18 20:43 Dose: 40 mg Enoxaparin Sodium (Lovenox) 40 mg SUBCUT DAILY [facility] Last Admin: 01/22/18 08:50 Dose: 40 mg Guaifenesin/Phenylephrine HCl (Robitussin Dm) 10 ml PO QID PRN PRN Reason: cough Last Admin: 01/21/18 13:54 Dose: 10 ml Hydralazine HCl (Apresoline) 20 mg IVPUSH Q6H PRN PRN Reason: Hypertension Last Admin: 01/22/18 21:03 Dose: 20 mg Levofloxacin/Dextrose 750 mg/ (Premix) 150 mls @ 100 mls/hr IV Q24H [facility] Last Admin: 01/22/18 18:37 Dose: 100 mls/hr Piperacillin Sod/Tazobactam (Sod 4.5 gm/ Sodium Chloride) 100 mls @ 25 mls/hr IV Q8H [facility] Last Admin: 01/23/18 05:52 Dose: 25 mls/hr Ipratropium [place] (Atrovent) 0.5 mg NEB Q6H [facility] Lisinopril (Prinivil) 10 mg PO DAILY [facility] Last Admin: 01/21/18 11:11 Dose: 10 mg Metoclopramide HCl (Reglan) 10 mg IVPUSH Q6H PRN PRN Reason: Nausea/Vomiting Last Admin: 01/21/18 23:09 Dose: 10 mg Metoclopramide HCl (Reglan) 10 mg IVPUSH BID@0600,2100 [facility] Last Admin: 01/23/18 05:47 Dose: 10 mg Miscellaneous Information (Remove Patch) 1 ea TRDERM Q72H [facility] Ondansetron HCl (Zofran) 4 mg IVPUSH Q8H PRN PRN Reason: Nausea/Vomiting Last Admin: 01/22/18 18:27 Dose: 4 mg Ciprofloxacin/Dexamethasone Otic Susp. 0 each EARRT BID [facility] Last Admin: 01/22/18 20:44 Dose: 4 each Saccharomyces Boulardii (Florastor) 250 mg PO DAILY [facility] Last Admin: 01/22/18 08:48 Dose: 250 mg Scopolamine (Transderm-Scop) 1.5 mg TRDERM Q72H PRN PRN Reason: Nausea/Vomiting Last Admin: 01/22/18 11:37 Dose: 1.5 mg Temazepam (Restoril) 7.5 mg PO BEDTIME PRN PRN Reason: Insomnia Last Admin: 01/22/18 22:39 Dose: 7.5 mg Discontinued Medications Acetaminophen (Tylenol) 975 mg PO NOW ONE Stop: 01/20/18 08:00 Last Admin: 01/20/18 08:05 Dose: 975 mg Albuterol/Ipratropium (Duoneb 3.0-0.5 Mg/3 Ml) 3 ml NEB QID PRN PRN Reason: Shortness of Breath Albuterol/Ipratropium (Duoneb 3.0-0.5 Mg/3 Ml) 3 ml NEB QIDRT [facility] Last Admin: 01/22/18 15:57 Dose: 3 ml Azithromycin (Zithromax) 500 mg IV Q24H [facility] Citalopram Hydrobromide (Celexa) 40 mg PO DAILY [facility] Furosemide (Lasix) 10 mg IVPUSH ONETIME ONE Stop: 01/22/18 07:01 Last Admin: 01/22/18 07:26 Dose: 10 mg Sodium Chloride (Normal Saline) 1,000 mls @ 999 mls/hr IV ONETIME ONE Stop: 01/20/18 06:16 Last Admin: 01/20/18 05:20 Dose: 999 mls/hr Magnesium Sulfate 2 gm/ Premix 50 mls @ 50 mls/hr IV ONETIME ONE Stop: 01/20/18 06:48 Last Admin: 01/20/18 06:49 Dose: 50 mls/hr Sodium Chloride (Normal Saline) 500 mls @ 300 mls/hr IV .BOLUS ONE Stop: 01/20/18 08:24 Last Admin: 01/20/18 06:48 Dose: 300 mls/hr Sodium Chloride (Normal Saline) Confirm Administered Dose 1,000 mls @ as directed .ROUTE .STK-MED ONE Stop: 01/20/18 06:45 Last Admin: 01/20/18 06:49 Dose: Not Given Ceftriaxone Sodium 2 gm/ (Sodium Chloride) 100 mls @ 100 mls/hr IV ONETIME ONE Stop: 01/20/18 08:39 Last Admin: 01/20/18 08:01 Dose: 100 mls/hr Sodium Chloride (Normal Saline) 650 mls @ 1,000 mls/hr IV ASDIRECTED [facility] Sodium Chloride (Normal Saline) 1,000 mls @ 100 mls/hr IV ASDIRECTED [facility] Last Admin: 01/20/18 09:29 Dose: 100 mls/hr Sodium Chloride (Normal Saline) 1,000 mls @ 999 mls/hr IV Q1H [facility] Stop: 01/20/18 13:59 Last Admin: 01/20/18 14:02 Dose: 999 mls/hr Azithromycin 500 mg/ Sodium (Chloride) 250 mls @ 250 mls/hr IV Q24H [facility] Last Admin: 01/21/18 11:08 Dose: 250 mls/hr Sodium Chloride (Normal Saline) 1,000 mls @ 150 mls/hr IV ASDIRECTED [facility] Last Admin: 01/21/18 03:41 Dose: 150 mls/hr Ceftriaxone Sodium 2 gm/ (Sodium Chloride) 100 mls @ 200 mls/hr IV Q24H [facility] Last Admin: 01/21/18 11:47 Dose: Not Given Ceftriaxone Sodium 2 gm/ (Dextrose/Water) 100 mls @ 200 mls/hr IV Q24H [facility] Last Admin: 01/21/18 08:54 Dose: 200 mls/hr Sodium Chloride (Sodium Chloride 0.45%) 1,000 mls @ 75 mls/hr IV ASDIRECTED [facility] Last Admin: 01/21/18 21:35 Dose: 75 mls/hr Vancomycin HCl 1 gm/ Sodium (Chloride) 250 mls @ 250 mls/hr IV ONETIME ONE Stop: 01/21/18 21:14 Last Admin: 01/21/18 20:35 Dose: 250 mls/hr Piperacillin Sod/Tazobactam (Sod 4.5 gm/ Sodium Chloride) 100 mls @ 25 mls/hr IV Q8H [facility] Last Admin: 01/22/18 19:44 Dose: Not Given Piperacillin Sod/Tazobactam (Sod 4.5 gm/ Sodium Chloride) 100 mls @ 200 mls/hr IV ONETIME ONE Stop: 01/22/18 10:29 Last Admin: 01/22/18 10:55 Dose: 200 mls/hr Levalbuterol HCl (Xopenex) 1.25 mg NEB Q6HRRT [facility] Last Admin: 01/23/18 06:30 Dose: Not Given Lorazepam (Ativan) 1 mg IVPUSH ONETIME ONE Stop: 01/21/18 17:18 Last Admin: 01/21/18 17:41 Dose: 0.5 mg Morphine Sulfate (Morphine) 1 mg IVPUSH ONETIME ONE Stop: 01/21/18 17:44 Last Admin: 01/21/18 18:28 Dose: 1 mg - Exam Quality Assessment: DVT Prophylaxis General: Alert, Oriented, Cooperative, No Acute Distress HEENT: Pupils Equal, Pupils Reactive, EOMI, Mucous Membr. Moist/[place] Neck: Supple, Trachea Midline, No JVD Lungs: Clear to Auscultation, Normal Respiratory Effort Cardiovascular: Regular Rate, Regular Rhythm GI/Abdominal Exam: Normal Bowel Sounds, Soft, Non-Tender, No Organomegaly, No Distention, No Abnormal Bruit, No Mass, Pelvis Stable (Female) Exam: Deferred Back Exam: Normal Inspection, Full Range of Motion Extremities: Normal Inspection, Normal Range of Motion, Non-Tender, No Pedal Edema, Normal Capillary Refill Peripheral Pulses: 1+: Posterior Tibial (L), Posterior Tibial (R), Dorsalis Pedis (L), Dorsalis Pedis (R), 2+: Radial (L), Radial (R) Skin: Warm, Dry, Intact Neurological: No New Focal Deficit Psy/Mental Status: Alert, Normal Affect, Normal Mood - Problem List & Annotations (1) Pneumonia SNOMED Code(s): 769943794 Code(s): J18.9 - PNEUMONIA, UNSPECIFIED ORGANISM Status: Acute Current Visit: Yes Qualifiers: Pneumonia type: due to unspecified organism Laterality: left Lung location: lower lobe of lung Qualified Code(s): J18.1 - Lobar pneumonia, unspecified organism (2) Right otitis media SNOMED Code(s): 71833233 Code(s): H66.91 - OTITIS MEDIA, UNSPECIFIED, RIGHT EAR Status: Acute Current Visit: Yes Qualifiers: Otitis media type: serous Chronicity: acute Recurrence: not specified as recurrent Qualified Code(s): H65.01 - Acute serous otitis media, right ear (3) Tympanic membrane perforation SNOMED Code(s): 94299799 Code(s): H72.90 - UNSP PERFORATION OF TYMPANIC MEMBRANE, UNSPECIFIED EAR Status: Acute Current Visit: Yes Qualifiers: Laterality: right Qualified Code(s): H72.91 - Unspecified perforation of tympanic membrane, right ear (4) Acute serous otitis media, right ear SNOMED Code(s): 965031533 Code(s): H65.01 - ACUTE SEROUS OTITIS MEDIA, RIGHT EAR Status: Acute Current Visit: No (5) Viral URI with cough SNOMED Code(s): 030660282 Code(s): J06.9 - ACUTE UPPER RESPIRATORY INFECTION, UNSPECIFIED; B97.89 - OTH VIRAL AGENTS THE CAUSE OF DISEASES CLASSD ELSWHR Status: Acute Current Visit: No (6) Hypokalemia SNOMED Code(s): 51042966 Code(s): E87.6 - HYPOKALEMIA Status: Acute Priority: High Current Visit : Yes - Problem List Review Problem List Initiated/Reviewed/Updated: Yes - My Orders Last 24 Hours: My Active Orders 01/23/18 08:31 CULTURE SPUTUM + SMEAR [RM] Routine 01/23/18 09:00 Ipratropium [Atrovent] 0.5 mg NEB Q6H - Plan Plan:: Impression: LLL infiltrate, CAP; hypoxia resolved Nocturnal hypoxia, query sleep apnea. Ruptured right TM Acute otitis media Hypokalemia Chronic HTN Plan: IVF Antiemetic; advance diet as tolerated. ATB empirically changed to Levoquin and Zosyn after yesterday, decompensated Scopolamine patch for N/V Resp infect work up Droplet Isolation Supplement electrolytes PT evaluation for dizziness/nausea, tympanic membrane rupture Daily Labs Home meds DVT/GI prophylaxis Code status: full code, PCP: MAHENDRA Garzon
[2018-01-23] MEDS: Saccharomyces Boulardii (Probiotic) 250 MG Cap PO SCH (08:37)
[2018-01-23] MEDS: Enoxaparin 40 MG/0.4 ML Syringe SUBCUT SCH (08:38)
[2018-01-23] MEDS: CIPROFLOXACIN EARRT SCH (08:40)
[2018-01-23] MEDS: DEXAMETHASONE EARRT SCH (08:40)
[2018-01-23] MEDS: Ipratropium 0.02% 0.5 MG/2.5 ML Neb Soln NEB SCH (08:51)
[2018-01-23] MEDS ORDERED: Albuterol 0.042% 1.25 MG/3 ML Neb Soln NEB PRN (08:51)
[2018-01-23] MEDS: Potassium Chloride 10 MEQ in Premix Bag 1 BAG IV SCH (12:15)
[2018-01-23] MEDS ORDERED: Potassium Chloride 20 MEQ Tab.ER PO ONE (12:30)
[2018-01-24] MEDS: Ipratropium 0.02% 0.5 MG/2.5 ML Neb Soln NEB SCH ×5 (02:04→20:10)
[2018-01-24] MEDS: Piperacillin/Tazobactam 4.5 GM in Sodium Chloride 0.9% 100 ML IV SCH ×3 (04:28→05:32)
[2018-01-24] MEDS: Citalopram 20 MG Tab PO SCH ×2 (04:29→20:37)
[2018-01-24] MEDS: Potassium Chloride 20 MEQ Tab.ER PO SCH (04:29)
[2018-01-24] MEDS: Levofloxacin/Dextrose 5%-Water 750 MG in Premix Bag 1 BAG IV SCH ×2 (04:29→18:00)
[2018-01-24] MEDS: Metoclopramide 10 MG/2 ML SDV IVPUSH SCH ×2 (04:30→05:32)
[2018-01-24] MEDS: DEXAMETHASONE EARRT SCH ×3 (04:30→20:37)
[2018-01-24] MEDS: CIPROFLOXACIN EARRT SCH ×3 (04:30→20:37)
[2018-01-24] MEDS: Potassium Chloride 10 MEQ in Premix Bag 1 BAG IV SCH (04:35)
--- NOTE | 2018-01-24 06:30 | PCM.PN ---
- General Info Date of Service: 01/24/18 Admission Dx/Problem (Free Text): Admission Diagnosis/Problem Admission Diagnosis/Problem Sepsis Subjective Update: In to see Fatou. She is sitting in the chair eating breakfast. Diet was advanced. She reports occasional dizziness but none now. PT has reportedly seen her for possible vestibular problems and said things were "looking good" but no note is in yet. Per the patient she has a longstanding history of vertigo and takes OTC Dramamine1 symptoms arise. She is positive for pneumococcal pneumonia and RSV. Will discontinue Zosyn and continue Levaquin. Antacid was ordered today. Chest x-ray is ordered today. Labs continue to improve. Likely discharge on . No patient or nursing concerns Functional Status: Reports: Pain Controlled, Tolerating Diet, Ambulating, Urinating, Incentive Spirometry, Other (Acapella). Denies: New Symptoms - Review of Systems General: Reports: Weakness (improving ), Fatigue (improving ). Denies: Malaise HEENT: Reports: Ear Pain (improving ). Denies: Headaches Pulmonary: Reports: Shortness of Breath, Cough (improving ), Sputum (improving ) . Denies: Wheezing Cardiovascular: Reports: Dyspnea on Exertion (improving ). Denies: Chest Pain, Palpitations, Edema, Lightheadedness Gastrointestinal: Reports: No Symptoms. Denies: Abdominal Pain, Constipation, Nausea, Vomiting Genitourinary: Reports: No Symptoms Musculoskeletal: Reports: No Symptoms Skin: Reports: No Symptoms Neurological: Reports: No Symptoms Psychiatric: Reports: No Symptoms - Patient Data Vitals - Most Recent: Last Vital Signs Temp 98.6 F 01/23/18 01:51 Pulse 101 H 01/23/18 01:51 Resp 18 01/23/18 01:51 BP 126/62 01/23/18 01:51 Pulse Ox 93 L 01/23/18 08:51 Orthostatic Blood Pressure [ 124/64 Standing] Orthostatic Blood Pressure [ 126/58 Supine] Weight - Most Recent: 165 lb 4.8 oz I&O - Last 24 Hours: Intake & Output 01/23/18 01/23/18 01/24/18 14:59 22:59 06:59 Intake Total 630 320 100 Balance 630 320 100 Lab Results Last 24 Hours: Laboratory Results - last 24 hr 01/23/18 01/23/18 01/24/18 Range/Units 05:40 05:40 05:53 WBC 11.40 H (3.98-10.04) K/mm3 RBC 3.83 L (3.98-5.22) M/mm3 Hgb 11.6 (11.2-15.7) gm/L Hct 34.9 (34.1-44.9) % MCV 91.1 (79.4-94.8) fl MCH 30.3 (25.6-32.2) pg MCHC 33.2 (32.2-35.5) g/dl RDW Std Deviation 49.0 H (36.4-46.3) fL Plt Count 337 (182-369) K/mm3 MPV 9.2 L (9.4-12.3) fl Neut % (Auto) 64.3 (34.0-71.1) % Lymph % (Auto) 15.1 L (19.3-51.7) % [place] % (Auto) 13.9 H (4.7-12.5) % Eos % (Auto) 1.6 (0.7-5.8) Baso % (Auto) 0.5 (0.1-1.2) % Neut # (Auto) 7.34 H (1.56-6.13) K/mm3 Lymph # (Auto) 1.72 (1.18-3.74) K/mm3 [place] # (Auto) 1.58 H (0.24-0.36) K/mm3 Eos # (Auto) 0.18 (0.04-0.36) K/mm3 Baso # (Auto) 0.06 (0.01-0.08) K/mm3 Sodium 141 (136-145) mEq/L Potassium 3.1 L (3.5-5.1) mEq/L Chloride 106 (98-107) mEq/L Carbon Dioxide 25 (21-32) mEq/L Anion Gap 13.1 (5-15) BUN 7 (7-18) mg/dL Creatinine 0.8 (0.55-1.02) mg/dL Est Cr Clr Drug Dosing 68.61 mL/min Estimated GFR (MDRD) > 60 (>60) mL/min BUN/Creatinine Ratio 8.8 L (14-18) Glucose 108 H (74-106) mg/dL Lactic Acid 0.7 (0.4-2.0) mmol/L Calcium 9.1 (8.5-10.1) mg/dL Magnesium 1.9 (1.8-2.4) mg/dl C-Reactive Protein 11.9 H* (<1.0) mg/dL [place] Results Last 24 Hours: Microbiology 01/20/18 06:20 Aerobic Blood Culture - Preliminary Blood - Venous - Lab Draw NO GROWTH AFTER 4 DAYS Anaerobic Blood Culture - Preliminary NO GROWTH AFTER 4 DAYS 01/20/18 06:10 Aerobic Blood Culture - Preliminary Blood - Venous NO GROWTH AFTER 4 DAYS Anaerobic Blood Culture - Preliminary NO GROWTH AFTER 4 DAYS 01/20/18 21:21 Respiratory Virus Panel (PCR) - Final Nasopharyngeal Swab 01/20/18 13:40 Streptococcus pneumoniae Antigen (M - Final Urine 01/21/18 17:50 Aerobic Blood Culture - Preliminary Blood - Venous - Lab Draw NO GROWTH AFTER 2 DAYS Anaerobic Blood Culture - Preliminary NO GROWTH AFTER 2 DAYS 01/21/18 17:35 Aerobic Blood Culture - Preliminary Blood - Venous NO GROWTH AFTER 2 DAYS Anaerobic Blood Culture - Preliminary NO GROWTH AFTER 2 DAYS Med Orders - Current: Current Medications Acetaminophen (Tylenol) 650 mg PO Q6H PRN PRN Reason: Pain/Fever Last Admin: 01/21/18 16:13 Dose: 650 mg Albuterol (Proventil Neb Soln) 1.25 mg NEB Q4HRRT PRN PRN Reason: Shortness of Breath Citalopram Hydrobromide (Celexa) 40 mg PO BEDTIME [facility] Last Admin: 01/24/18 04:29 Dose: Not Given Enoxaparin Sodium (Lovenox) 40 mg SUBCUT DAILY [facility] Last Admin: 01/23/18 08:38 Dose: 40 mg Guaifenesin/Phenylephrine HCl (Robitussin Dm) 10 ml PO QID PRN PRN Reason: cough Last Admin: 01/21/18 13:54 Dose: 10 ml Hydralazine HCl (Apresoline) 20 mg IVPUSH Q6H PRN PRN Reason: Hypertension Last Admin: 01/22/18 21:03 Dose: 20 mg Levofloxacin/Dextrose 750 mg/ (Premix) 150 mls @ 100 mls/hr IV Q24H [facility] Last Admin: 01/24/18 04:29 Dose: Not Given Piperacillin Sod/Tazobactam (Sod 4.5 gm/ Sodium Chloride) 100 mls @ 25 mls/hr IV Q8H [facility] Last Admin: 01/24/18 05:32 Dose: 25 mls/hr Ipratropium [place] (Atrovent) 0.5 mg NEB Q6H [facility] Last Admin: 01/24/18 04:29 Dose: Not Given Lisinopril (Prinivil) 10 mg PO DAILY [facility] Last Admin: 01/21/18 11:11 Dose: 10 mg Metoclopramide HCl (Reglan) 10 mg IVPUSH Q6H PRN PRN Reason: Nausea/Vomiting Last Admin: 01/21/18 23:09 Dose: 10 mg Metoclopramide HCl (Reglan) 10 mg IVPUSH BID@0600,2100 [facility] Last Admin: 01/24/18 05:32 Dose: 10 mg Miscellaneous Information (Remove Patch) 1 ea TRDERM Q72H [facility] Ondansetron HCl (Zofran) 4 mg IVPUSH Q8H PRN PRN Reason: Nausea/Vomiting Last Admin: 01/22/18 18:27 Dose: 4 mg Ciprofloxacin/Dexamethasone Otic Susp. 0 each EARRT BID [facility] Last Admin: 01/24/18 04:30 Dose: Not Given Saccharomyces Boulardii (Florastor) 250 mg PO DAILY [facility] Last Admin: 01/23/18 08:37 Dose: 250 mg Scopolamine (Transderm-Scop) 1.5 mg TRDERM Q72H PRN PRN Reason: Nausea/Vomiting Last Admin: 01/22/18 11:37 Dose: 1.5 mg Temazepam (Restoril) 7.5 mg PO BEDTIME PRN PRN Reason: Insomnia Last Admin: 01/22/18 22:39 Dose: 7.5 mg Discontinued Medications Acetaminophen (Tylenol) 975 mg PO NOW ONE Stop: 01/20/18 08:00 Last Admin: 01/20/18 08:05 Dose: 975 mg Albuterol (Proventil Neb Soln) 2.5 mg NEB Q4HRRT PRN PRN Reason: Shortness of Breath Last Admin: 01/21/18 17:46 Dose: 2.5 mg Albuterol/Ipratropium (Duoneb 3.0-0.5 Mg/3 Ml) 3 ml NEB QID PRN PRN Reason: Shortness of Breath Albuterol/Ipratropium (Duoneb 3.0-0.5 Mg/3 Ml) 3 ml NEB QIDRT [facility]AH Last Admin: 01/22/18 15:57 Dose: 3 ml Azithromycin (Zithromax) 500 mg IV Q24H [facility] Citalopram Hydrobromide (Celexa) 40 mg PO DAILY [facility] Furosemide (Lasix) 10 mg IVPUSH ONETIME ONE Stop: 01/22/18 07:01 Last Admin: 01/22/18 07:26 Dose: 10 mg Sodium Chloride (Normal Saline) 1,000 mls @ 999 mls/hr IV ONETIME ONE Stop: 01/20/18 06:16 Last Admin: 01/20/18 05:20 Dose: 999 mls/hr Magnesium Sulfate 2 gm/ Premix 50 mls @ 50 mls/hr IV ONETIME ONE Stop: 01/20/18 06:48 Last Admin: 01/20/18 06:49 Dose: 50 mls/hr Sodium Chloride (Normal Saline) 500 mls @ 300 mls/hr IV .BOLUS ONE Stop: 01/20/18 08:24 Last Admin: 01/20/18 06:48 Dose: 300 mls/hr Sodium Chloride (Normal Saline) Confirm Administered Dose 1,000 mls @ as directed .ROUTE .STK-MED ONE Stop: 01/20/18 06:45 Last Admin: 01/20/18 06:49 Dose: Not Given Ceftriaxone Sodium 2 gm/ (Sodium Chloride) 100 mls @ 100 mls/hr IV ONETIME ONE Stop: 01/20/18 08:39 Last Admin: 01/20/18 08:01 Dose: 100 mls/hr Sodium Chloride (Normal Saline) 650 mls @ 1,000 mls/hr IV ASDIRECTED SARAH Sodium Chloride (Normal Saline) 1,000 mls @ 100 mls/hr IV ASDIRECTED SARAH Last Admin: 01/20/18 09:29 Dose: 100 mls/hr Sodium Chloride (Normal Saline) 1,000 mls @ 999 mls/hr IV Q1H [facility] Stop: 01/20/18 13:59 Last Admin: 01/20/18 14:02 Dose: 999 mls/hr Azithromycin 500 mg/ Sodium (Chloride) 250 mls @ 250 mls/hr IV Q24H [facility] Last Admin: 01/21/18 11:08 Dose: 250 mls/hr Sodium Chloride (Normal Saline) 1,000 mls @ 150 mls/hr IV ASDIRECTED [facility] Last Admin: 01/21/18 03:41 Dose: 150 mls/hr Ceftriaxone Sodium 2 gm/ (Sodium Chloride) 100 mls @ 200 mls/hr IV Q24H [facility] Last Admin: 01/21/18 11:47 Dose: Not Given Ceftriaxone Sodium 2 gm/ (Dextrose/Water) 100 mls @ 200 mls/hr IV Q24H [facility] Last Admin: 01/21/18 08:54 Dose: 200 mls/hr Sodium Chloride (Sodium Chloride 0.45%) 1,000 mls @ 75 mls/hr IV ASDIRECTED [facility] Last Admin: 01/21/18 21:35 Dose: 75 mls/hr Vancomycin HCl 1 gm/ Sodium (Chloride) 250 mls @ 250 mls/hr IV ONETIME ONE Stop: 01/21/18 21:14 Last Admin: 01/21/18 20:35 Dose: 250 mls/hr Piperacillin Sod/Tazobactam (Sod 4.5 gm/ Sodium Chloride) 100 mls @ 25 mls/hr IV Q8H [facility] Last Admin: 01/22/18 19:44 Dose: Not Given Piperacillin Sod/Tazobactam (Sod 4.5 gm/ Sodium Chloride) 100 mls @ 200 mls/hr IV ONETIME ONE Stop: 01/22/18 10:29 Last Admin: 01/22/18 10:55 Dose: 200 mls/hr Potassium Chloride 10 meq/ (Premix) 100 mls @ 100 mls/hr IV Q1H [facility] Stop: 01/23/18 15:59 Last Admin: 01/24/18 04:35 Dose: Not Given Levalbuterol HCl (Xopenex) 1.25 mg NEB Q6HRRT [facility] Last Admin: 01/23/18 06:30 Dose: Not Given Lorazepam (Ativan) 1 mg IVPUSH ONETIME ONE Stop: 01/21/18 17:18 Last Admin: 01/21/18 17:41 Dose: 0.5 mg Morphine Sulfate (Morphine) 1 mg IVPUSH ONETIME ONE Stop: 01/21/18 17:44 Last Admin: 01/21/18 18:28 Dose: 1 mg Potassium Chloride (Klor-Con M20) 40 meq PO DAILY ONE Stop: 01/23/18 12:31 Last Admin: 01/23/18 12:47 Dose: 40 meq Potassium Chloride (Klor-Con M20) 40 meq PO Q4H [facility]AH Stop: 01/23/18 21:01 Last Admin: 01/24/18 04:29 Dose: Not Given - Exam Quality Assessment: DVT Prophylaxis General: Alert, Oriented, Cooperative, No Acute Distress HEENT: Pupils Equal, Pupils Reactive, EOMI, Mucous Membr. Moist/[place] Neck: Supple Lungs: Clear to Auscultation, Normal Respiratory Effort, Decreased Breath Sounds Cardiovascular: Regular Rate, Regular Rhythm GI/Abdominal Exam: Normal Bowel Sounds, Soft, Non-Tender, No Organomegaly, No Distention, No Abnormal Bruit, No Mass, Pelvis Stable (Female) Exam: Deferred Back Exam: Normal Inspection, Full Range of Motion Extremities: Normal Inspection, Normal Range of Motion, Non-Tender, No Pedal Edema, Normal Capillary Refill Peripheral Pulses: 1+: Posterior Tibial (L), Posterior Tibial (R), Dorsalis Pedis (L), Dorsalis Pedis (R), 2+: Radial (L), Radial (R) Skin: Warm, Dry, Intact Neurological: No New Focal Deficit Psy/Mental Status: Alert, Normal Affect, Normal Mood - Problem List & Annotations (1) Pneumonia SNOMED Code(s): 458531854 Code(s): J18.9 - PNEUMONIA, UNSPECIFIED ORGANISM Status: Acute Current Visit: Yes Qualifiers: Pneumonia type: due to Pneumococcus Laterality: left Lung location: lower lobe of lung Qualified Code(s): J13 - Pneumonia due to Streptococcus pneumoniae (2) Right otitis media SNOMED Code(s): 09318506 Code(s): H66.91 - OTITIS MEDIA, UNSPECIFIED, RIGHT EAR Status: Acute Current Visit: Yes Qualifiers: Otitis media type: serous Chronicity: acute Recurrence: not specified as recurrent Qualified Code(s): H65.01 - Acute serous otitis media, right ear (3) Tympanic membrane perforation SNOMED Code(s): 82819177 Code(s): H72.90 - UNSP PERFORATION OF TYMPANIC MEMBRANE, UNSPECIFIED EAR Status: Acute Current Visit: Yes Qualifiers: Laterality: right Qualified Code(s): H72.91 - Unspecified perforation of tympanic membrane, right ear (4) Acute serous otitis media, right ear SNOMED Code(s): 051647508 Code(s): H65.01 - ACUTE SEROUS OTITIS MEDIA, RIGHT EAR Status: Acute Current Visit: No (5) Viral URI with cough SNOMED Code(s): 364605614 Code(s): J06.9 - ACUTE UPPER RESPIRATORY INFECTION, UNSPECIFIED; B97.89 - OTH VIRAL AGENTS THE CAUSE OF DISEASES CLASSD [id number] Status: Acute Current Visit: No (6) Hypokalemia SNOMED Code(s): 32239704 Code(s): E87.6 - HYPOKALEMIA Status: Acute Priority: High Current Visit : Yes (7) Respiratory syncytial virus (RSV) infection SNOMED Code(s): 67199857 Code(s): B97.4 - RESPIRATORY SYNCYTIAL VIRUS CAUSING DISEASES CLASSD ELSWHR Status: Acute Priority: High Current Visit: Yes - Problem List Review Problem List Initiated/Reviewed/Updated: Yes - My Orders Last 24 Hours: My Active Orders 01/23/18 08:31 CULTURE SPUTUM + SMEAR [RM] Routine 01/23/18 09:00 Ipratropium [Atrovent] 0.5 mg NEB Q6H 01/23/18 13:35 Ambulate [RC] ASDIRECTED 01/23/18 13:40 Incentive Spirometry [RT Incentive Spirometry] [RC] ASDIRECTED RT Acapella [RESPCARE] Routine 01/23/18 Dinner Soft Diet [DIET] 01/24/18 08:00 CXR [Chest 2V] [CR] Routine - Plan Plan:: Impression: LLL infiltrate, CAP; hypoxia resolved -Positive RSV -Positive pneumococcal pneumonia Nocturnal hypoxia, query sleep apnea. Ruptured right TM Acute otitis media Hypokalemia -->resolved Chronic HTN Plan: IVF Antiemetic; advance diet as tolerated. ATB empirically changed to Levoquin and Zosyn--> stop zosyn after yesterday, decompensated Scopolamine patch for N/V Resp infect work up Droplet Isolation Supplement electrolytes PT evaluation for dizziness/nausea, tympanic membrane rupture Daily Labs Home meds DVT/GI prophylaxis Code status: full code, PCP: MAHENDRA Garzon LOS >96 Hrs due to slow response to treatment. Need for continued IV antibiotics.
[2018-01-24] MEDS ORDERED: Aluminum Hydroxide/Magnesium Hydroxide/Simethicone Susp 30 ML Cup PO ONE (07:25)
[2018-01-24] MEDS: Lisinopril 10 MG Tab PO SCH (09:28)
[2018-01-24] MEDS: Saccharomyces Boulardii (Probiotic) 250 MG Cap PO SCH (09:28)
[2018-01-24] MEDS: hydrALAZINE 20 MG/ML SDV IVPUSH PRN (09:29)
[2018-01-24] MEDS: Enoxaparin 40 MG/0.4 ML Syringe SUBCUT SCH (09:29)
[2018-01-24] MEDS: Famotidine 20 MG Tab PO SCH ×2 (09:29→20:37)
--- NOTE | 2018-01-24 10:24 | CR ---
Chest: Two views of the chest were obtained. Comparison: Prior chest x-ray of 01/21/18. Left lower lung parenchymal density is seen. When allowing for differences in technique, findings are felt to be fairly stable from previous exam. Possible small left sided parapneumonic effusion is noted. Heart size and mediastinum are normal. Possible small right-sided pleural effusion also noted. Slight scoliosis is noted within the spine. Impression: 1. Unchanged parenchymal density within the left lung base most likely due to pneumonia. 2. Small parapneumonic left-sided pleural effusion is felt to be present as well as possible minimal right-sided pleural effusion. 3. Other incidental findings. Diagnostic code #3
[2018-01-24] MEDS: Acetaminophen 325 MG Tab PO PRN (16:34)
[2018-01-24] MEDS: Temazepam 7.5 MG Cap PO PRN (20:43)
[2018-01-25] MEDS: Ipratropium 0.02% 0.5 MG/2.5 ML Neb Soln NEB SCH ×4 (02:04→20:35)
[2018-01-25] MEDS: Saccharomyces Boulardii (Probiotic) 250 MG Cap PO SCH (09:22)
[2018-01-25] MEDS: Lisinopril 10 MG Tab PO SCH (09:22)
[2018-01-25] MEDS: Famotidine 20 MG Tab PO SCH ×2 (09:22→20:02)
[2018-01-25] MEDS: Enoxaparin 40 MG/0.4 ML Syringe SUBCUT SCH (09:22)
[2018-01-25] MEDS: DEXAMETHASONE EARRT SCH ×2 (09:23→20:03)
[2018-01-25] MEDS: CIPROFLOXACIN EARRT SCH ×2 (09:23→20:03)
--- NOTE | 2018-01-25 13:38 | PCM.PN ---
- General Info Date of Service: 01/25/18 Admission Dx/Problem (Free Text): Admission Diagnosis/Problem Admission Diagnosis/Problem Sepsis Subjective Update: In to see Fatou today. She is lying in bed. Overall she is doing quite well. She has no complaints. She has been sleeping well. Good appetite. Ambulating. Pain is controlled. No dizziness, fever, chills, nausea, or vomiting. Urinating. No concerns from nursing. She will be started on oral antibiotics today and we will wait to see how she does on them before sending her home. Will be DCd back to home tomorrow pending clinical disposition. Functional Status: Reports: Pain Controlled, Tolerating Diet, Ambulating, Urinating - Review of Systems General: Reports: No Symptoms. Denies: Fever, Weakness, Fatigue, Chills HEENT: Reports: No Symptoms, Ear Pain (Right sided, improved) Pulmonary: Reports: No Symptoms. Denies: Shortness of Breath, Pleuritic Chest Pain, Cough, Sputum Cardiovascular: Reports: No Symptoms. Denies: Chest Pain, Palpitations, Dyspnea on Exertion Gastrointestinal: Reports: No Symptoms. Denies: Abdominal Pain, Diarrhea, Nausea, Vomiting Genitourinary: Reports: No Symptoms. Denies: Dysuria, Frequency, Burning, Pain Musculoskeletal: Reports: No Symptoms Skin: Reports: No Symptoms Neurological: Reports: No Symptoms. Denies: Dizziness Psychiatric: Reports: No Symptoms - Patient Data Vitals - Most Recent: Last Vital Signs Temp 99.0 F 01/25/18 08:00 Pulse 100 01/25/18 08:00 Resp 19 01/25/18 08:00 BP 146/70 H 01/25/18 09:22 Pulse Ox 92 L 01/25/18 08:45 Orthostatic Blood Pressure [ 124/64 Standing] Orthostatic Blood Pressure [ 126/58 Supine] Weight - Most Recent: 162 lb 9.6 oz I&O - Last 24 Hours: Intake & Output 01/24/18 01/25/18 01/25/18 22:59 06:59 14:59 Intake Total 1680 1200 320 Output Total 2300 2600 Balance -620 -1400 320 Lab Results Last 24 Hours: Laboratory Results - last 24 hr 01/25/18 01/25/18 01/25/18 Range/Units 08:10 08:10 08:10 WBC 10.53 H (3.98-10.04) K/mm3 RBC 4.27 (3.98-5.22) M/mm3 Hgb 12.8 (11.2-15.7) gm/L Hct 38.8 (34.1-44.9) % MCV 90.9 (79.4-94.8) fl MCH 30.0 (25.6-32.2) pg MCHC 33.0 (32.2-35.5) g/dl RDW Std Deviation 48.6 H (36.4-46.3) fL Plt Count 391 H (182-369) K/mm3 MPV 9.4 (9.4-12.3) fl Neut % (Auto) 63.7 (34.0-71.1) % Lymph % (Auto) 16.9 L (19.3-51.7) % S[place]y % (Auto) 8.6 (4.7-12.5) % Eos % (Auto) 1.9 (0.7-5.8) Baso % (Auto) 0.4 (0.1-1.2) % Neut # (Auto) 6.70 H (1.56-6.13) K/mm3 Lymph # (Auto) 1.78 (1.18-3.74) K/mm3 S[place]y # (Auto) 0.91 H (0.24-0.36) K/mm3 Eos # (Auto) 0.20 (0.04-0.36) K/mm3 Baso # (Auto) 0.04 (0.01-0.08) K/mm3 Manual Slide Review Abnormal smear Sodium 139 (136-145) mEq/L Potassium 3.7 (3.5-5.1) mEq/L Chloride 102 (98-107) mEq/L Carbon Dioxide 23 (21-32) mEq/L Anion Gap 17.7 H (5-15) BUN 14 (7-18) mg/dL Creatinine 1.0 (0.55-1.02) mg/dL Est Cr Clr Drug Dosing 54.89 mL/min Estimated GFR (MDRD) 58 (>60) mL/min BUN/Creatinine Ratio 14.0 (14-18) Glucose 153 H (74-106) mg/dL Lactic Acid 1.7 (0.4-2.0) mmol/L Calcium 9.4 (8.5-10.1) mg/dL Magnesium 2.0 (1.8-2.4) mg/dl C-Reactive Protein 7.6 H* (<1.0) mg/dL [place] Results Last 24 Hours: Microbiology 01/23/18 22:30 Gram Stain - Final Sputum - Expectorated Sputum Culture - Preliminary Yeast Isolated 01/20/18 06:20 Aerobic Blood Culture - Preliminary Blood - Venous - Lab Draw NO GROWTH AFTER 5 DAYS Anaerobic Blood Culture - Preliminary NO GROWTH AFTER 5 DAYS 01/20/18 06:10 Aerobic Blood Culture - Preliminary Blood - Venous NO GROWTH AFTER 5 DAYS Anaerobic Blood Culture - Preliminary NO GROWTH AFTER 5 DAYS 01/21/18 17:50 Aerobic Blood Culture - Preliminary Blood - Venous - Lab Draw NO GROWTH AFTER 3 DAYS Anaerobic Blood Culture - Preliminary NO GROWTH AFTER 3 DAYS 01/21/18 17:35 Aerobic Blood Culture - Preliminary Blood - Venous NO GROWTH AFTER 3 DAYS Anaerobic Blood Culture - Preliminary NO GROWTH AFTER 3 DAYS 01/21/18 16:43 Gram Stain - Final Sputum - Expectorated Sputum Culture - Final Med Orders - Current: Current Medications Acetaminophen (Tylenol) 650 mg PO Q6H PRN PRN Reason: Pain/Fever Last Admin: 01/24/18 16:34 Dose: 650 mg Albuterol (Proventil Neb Soln) 1.25 mg NEB Q4HRRT PRN PRN Reason: Shortness of Breath Citalopram Hydrobromide (Celexa) 40 mg PO BEDTIME [facility] Last Admin: 01/24/18 20:37 Dose: 40 mg Enoxaparin Sodium (Lovenox) 40 mg SUBCUT DAILY [facility] Last Admin: 01/25/18 09:22 Dose: 40 mg Famotidine (Pepcid) 20 mg PO BID [facility] Last Admin: 01/25/18 09:22 Dose: 20 mg Guaifenesin/Phenylephrine HCl (Robitussin Dm) 10 ml PO QID PRN PRN Reason: cough Last Admin: 01/21/18 13:54 Dose: 10 ml Hydralazine HCl (Apresoline) 20 mg IVPUSH Q6H PRN PRN Reason: Hypertension Last Admin: 01/24/18 09:29 Dose: 20 mg Ipratropium Edgar (Atrovent) 0.5 mg NEB Q6H [facility] Last Admin: 01/25/18 08:45 Dose: 0.5 mg Levofloxacin (Levaquin) 750 mg PO Q24H [facility] Lisinopril (Prinivil) 10 mg PO DAILY [facility] Last Admin: 01/25/18 09:22 Dose: 10 mg Metoclopramide HCl (Reglan) 10 mg IVPUSH Q6H PRN PRN Reason: Nausea/Vomiting Last Admin: 01/21/18 23:09 Dose: 10 mg Miscellaneous Information (Remove Patch) 1 ea TRDERM Q72H [facility] Last Admin: 01/25/18 10:46 Dose: Not Given Ondansetron HCl (Zofran) 4 mg IVPUSH Q8H PRN PRN Reason: Nausea/Vomiting Last Admin: 01/22/18 18:27 Dose: 4 mg Ciprofloxacin/Dexamethasone Otic Susp. 0 each EARRT BID [facility] Last Admin: 01/25/18 09:23 Dose: 4 each Saccharomyces Boulardii (Florastor) 250 mg PO DAILY [facility] Last Admin: 01/25/18 09:22 Dose: 250 mg Scopolamine (Transderm-Scop) 1.5 mg TRDERM Q72H PRN PRN Reason: Nausea/Vomiting Last Admin: 01/22/18 11:37 Dose: 1.5 mg Temazepam (Restoril) 7.5 mg PO BEDTIME PRN PRN Reason: Insomnia Last Admin: 01/24/18 20:43 Dose: 7.5 mg Triamterene/HCTZ (Dyazide 25-37.5 Mg) 1 each PO DAILY [facility] Discontinued Medications Acetaminophen (Tylenol) 975 mg PO NOW ONE Stop: 01/20/18 08:00 Last Admin: 01/20/18 08:05 Dose: 975 mg Al Hydroxide/Mg Hydroxide (Mag-Al Plus) 30 ml PO ONETIME ONE Stop: 01/24/18 07:26 Last Admin: 01/24/18 08:21 Dose: 30 ml Albuterol (Proventil Neb Soln) 2.5 mg NEB Q4HRRT PRN PRN Reason: Shortness of Breath Last Admin: 01/21/18 17:46 Dose: 2.5 mg Albuterol/Ipratropium (Duoneb 3.0-0.5 Mg/3 Ml) 3 ml NEB QID PRN PRN Reason: Shortness of Breath Albuterol/Ipratropium (Duoneb 3.0-0.5 Mg/3 Ml) 3 ml NEB QIDRT [facility] Last Admin: 01/22/18 15:57 Dose: 3 ml Azithromycin (Zithromax) 500 mg IV Q24H [facility] Citalopram Hydrobromide (Celexa) 40 mg PO DAILY [facility] Furosemide (Lasix) 10 mg IVPUSH ONETIME ONE Stop: 01/22/18 07:01 Last Admin: 01/22/18 07:26 Dose: 10 mg Sodium Chloride (Normal Saline) 1,000 mls @ 999 mls/hr IV ONETIME ONE Stop: 01/20/18 06:16 Last Admin: 01/20/18 05:20 Dose: 999 mls/hr Magnesium Sulfate 2 gm/ Premix 50 mls @ 50 mls/hr IV ONETIME ONE Stop: 01/20/18 06:48 Last Admin: 01/20/18 06:49 Dose: 50 mls/hr Sodium Chloride (Normal Saline) 500 mls @ 300 mls/hr IV .BOLUS ONE Stop: 01/20/18 08:24 Last Admin: 01/20/18 06:48 Dose: 300 mls/hr Sodium Chloride (Normal Saline) Confirm Administered Dose 1,000 mls @ as directed .ROUTE .STK-MED ONE Stop: 01/20/18 06:45 Last Admin: 01/20/18 06:49 Dose: Not Given Ceftriaxone Sodium 2 gm/ (Sodium Chloride) 100 mls @ 100 mls/hr IV ONETIME ONE Stop: 01/20/18 08:39 Last Admin: 01/20/18 08:01 Dose: 100 mls/hr Sodium Chloride (Normal Saline) 650 mls @ 1,000 mls/hr IV ASDIRECTED SARAH Sodium Chloride (Normal Saline) 1,000 mls @ 100 mls/hr IV ASDIRECTED [facility] Last Admin: 01/20/18 09:29 Dose: 100 mls/hr Sodium Chloride (Normal Saline) 1,000 mls @ 999 mls/hr IV Q1H [facility] Stop: 01/20/18 13:59 Last Admin: 01/20/18 14:02 Dose: 999 mls/hr Azithromycin 500 mg/ Sodium (Chloride) 250 mls @ 250 mls/hr IV Q24H [facility] Last Admin: 01/21/18 11:08 Dose: 250 mls/hr Sodium Chloride (Normal Saline) 1,000 mls @ 150 mls/hr IV ASDIRECTED [facility] Last Admin: 01/21/18 03:41 Dose: 150 mls/hr Ceftriaxone Sodium 2 gm/ (Sodium Chloride) 100 mls @ 200 mls/hr IV Q24H [facility] Last Admin: 01/21/18 11:47 Dose: Not Given Ceftriaxone Sodium 2 gm/ (Dextrose/Water) 100 mls @ 200 mls/hr IV Q24H [facility] Last Admin: 01/21/18 08:54 Dose: 200 mls/hr Levofloxacin/Dextrose 750 mg/ (Premix) 150 mls @ 100 mls/hr IV Q24H [facility] Stop: 01/25/18 12:00 Last Admin: 01/24/18 18:00 Dose: 100 mls/hr Sodium Chloride (Sodium Chloride 0.45%) 1,000 mls @ 75 mls/hr IV ASDIRECTED [facility] Last Admin: 01/21/18 21:35 Dose: 75 mls/hr Vancomycin HCl 1 gm/ Sodium (Chloride) 250 mls @ 250 mls/hr IV ONETIME ONE Stop: 01/21/18 21:14 Last Admin: 01/21/18 20:35 Dose: 250 mls/hr Piperacillin Sod/Tazobactam (Sod 4.5 gm/ Sodium Chloride) 100 mls @ 25 mls/hr IV Q8H [facility] Last Admin: 01/22/18 19:44 Dose: Not Given Piperacillin Sod/Tazobactam (Sod 4.5 gm/ Sodium Chloride) 100 mls @ 200 mls/hr IV ONETIME ONE Stop: 01/22/18 10:29 Last Admin: 01/22/18 10:55 Dose: 200 mls/hr Piperacillin Sod/Tazobactam (Sod 4.5 gm/ Sodium Chloride) 100 mls @ 25 mls/hr IV Q8H [facility] Last Admin: 01/24/18 05:32 Dose: 25 mls/hr Potassium Chloride 10 meq/ (Premix) 100 mls @ 100 mls/hr IV Q1H [facility] Stop: 01/23/18 15:59 Last Admin: 01/24/18 04:35 Dose: Not Given Levalbuterol HCl (Xopenex) 1.25 mg NEB Q6HRRT [facility] Last Admin: 01/23/18 06:30 Dose: Not Given Lorazepam (Ativan) 1 mg IVPUSH ONETIME ONE Stop: 01/21/18 17:18 Last Admin: 01/21/18 17:41 Dose: 0.5 mg Metoclopramide HCl (Reglan) 10 mg IVPUSH BID@0600,2100 [facility] Last Admin: 01/24/18 05:32 Dose: 10 mg Morphine Sulfate (Morphine) 1 mg IVPUSH ONETIME ONE Stop: 01/21/18 17:44 Last Admin: 01/21/18 18:28 Dose: 1 mg Potassium Chloride (Klor-Con M20) 40 meq PO DAILY ONE Stop: 01/23/18 12:31 Last Admin: 01/23/18 12:47 Dose: 40 meq Potassium Chloride (Klor-Con M20) 40 meq PO Q4H [facility] Stop: 01/23/18 21:01 Last Admin: 01/24/18 04:29 Dose: Not Given - Exam Quality Assessment: DVT Prophylaxis. No: Supplemental Oxygen General: Alert, Oriented, Cooperative, No Acute Distress HEENT: Pupils Equal, Pupils Reactive, EOMI, Mucous Membr. Moist/Mina, Other ( EACs Clear, Hearing Intact; L ear- TMs Clear; R ear- TM perforated, erythematous ) Neck: Supple Lungs: Clear to Auscultation, Normal Respiratory Effort Cardiovascular: Regular Rate, Regular Rhythm GI/Abdominal Exam: Normal Bowel Sounds, Soft, Non-Tender, No Organomegaly, No Distention, No Abnormal Bruit, No Mass, Pelvis Stable (Female) Exam: Deferred Back Exam: Normal Inspection, Full Range of Motion Extremities: Normal Inspection, Normal Range of Motion, Non-Tender, No Pedal Edema, Normal Capillary Refill Peripheral Pulses: 2+: Posterior Tibial (L), Posterior Tibial (R), Dorsalis Pedis (L), Dorsalis Pedis (R) Skin: Warm, Dry, Intact Neurological: No New Focal Deficit - Problem List & Annotations (1) Pneumococcal pneumonia SNOMED Code(s): 719899724 Code(s): J13 - PNEUMONIA DUE TO STREPTOCOCCUS PNEUMONIAE Status: Acute Priority: High Current Visit: Yes Qualifiers: Laterality: left Lung location: lower lobe of lung Qualified Code(s): J13 - Pneumonia due to Streptococcus pneumoniae (2) Hypokalemia SNOMED Code(s): 20423097 Code(s): E87.6 - HYPOKALEMIA Status: Resolved Priority: High Current Visit: Yes (3) Respiratory syncytial virus (RSV) infection SNOMED Code(s): 67085106 Code(s): B97.4 - RESPIRATORY SYNCYTIAL VIRUS CAUSING DISEASES CLASSD ELSWHR Status: Acute Priority: High Current Visit: Yes (4) Right otitis media SNOMED Code(s): 36491910 Code(s): H66.91 - OTITIS MEDIA, UNSPECIFIED, RIGHT EAR Status: Acute Priority: High Current Visit: Yes Qualifiers: Otitis media type: serous Chronicity: acute Recurrence: not specified as recurrent Qualified Code(s): H65.01 - Acute serous otitis media, right ear (5) Tympanic membrane perforation SNOMED Code(s): 73288650 Code(s): H72.90 - UNSP PERFORATION OF TYMPANIC MEMBRANE, UNSPECIFIED EAR Status: Acute Priority: High Current Visit: Yes Qualifiers: Laterality: right Qualified Code(s): H72.91 - Unspecified perforation of tympanic membrane, right ear (6) Vertigo SNOMED Code(s): 647239911 Code(s): R42 - DIZZINESS AND GIDDINESS Status: Chronic Priority: Medium Current Visit: Yes - Problem List Review Problem List Initiated/Reviewed/Updated: Yes - My Orders Last 24 Hours: My Active Orders 01/25/18 12:25 Consult to Dietary [Consult to [employer]] [CONS] Routine 01/25/18 12:45 HCTZ/Triamterene [Dyazide 25-37.5 MG] 1 each PO DAILY 01/26/18 05:11 BASIC METABOLIC PANEL,BMP [CHEM] AM C-REACTIVE PROTEIN [CHEM] AM CBC WITH AUTO DIFF [HEME] AM LACTIC ACID [CHEM] AM LIPID PANEL [CHEM] AM MAGNESIUM [CHEM] AM - Plan Plan:: I/P: Acute: Pneumococcal Pneumonia and RSV, Improving -Productive cough w/ yellow sputum x2 weeks, Nasal congestion, Rhinorrhea, N/ V/D, fever 101.1 in the ED. -Hypoxia in ED 88%--> resolved now -CXR (01/21/18) : LLL infiltrate -WBC 13.58, Neutrophils 86%, Lactic acid 2.2 -CRP: 33.4-->7.6 -Rocephin given in ED--> D/C -Empiric treatment: Levoquin and Zosyn--> D/C Zosyn-->Start PO Levoquin today -IVF -Advance diet as tolerated, antiemetic, scopolamine patch -Duo-nebs, RT/IS/Acapella -RVP--> Positive RSV -Positive pneumococcal pneumonia -Blood cultures--> negative -Sputum culture--> yeast, on Florastor -Repeat CXR 01/24/18--> Stable LLL infiltrate, Small left/minimal right sided pleural effusion Acute otitis media/Ruptured right TM, improving -Seen and treated in Clinic prior to arrival -Continue at home RX drops -Monitor Resolved: Hypokalemia -3.4-->3.1-->3.7 today -Monitor and supplement as needed Nocturnal hypoxia, query sleep apnea -92% on RA now -Recommend F/U with PCP Vertigo, acute on Chronic -Takes OTC Dramamine PRN -PT evaluation for dizziness/nausea, tympanic membrane rupture Chronic: HTN -Continue at-home Lisinopril -Hydralazine PRN -Dyazide Q daily -DASH diet consult Plan: Admit to Med surg Resp infect work up Droplet Isolation PT evaluation for dizziness/nausea, tympanic membrane rupture Daily Labs Home meds DVT/GI prophylaxis Code status: full code, PCP: MAHENDRA Garzon Most likely D/C Home tomorrow pending clinical disposition LOS >96 Hrs due to slow response to treatment. Need for continued IV antibiotics.
[2018-01-25] MEDS: Hydrochlorothiazide/Triamterene 25-37.5 MG Cap PO SCH (15:17)
[2018-01-25] MEDS ORDERED: Levofloxacin 750 MG Tab PO SCH (18:00)
[2018-01-25] MEDS: Citalopram 20 MG Tab PO SCH (20:02)
[2018-01-26] MEDS: Ipratropium 0.02% 0.5 MG/2.5 ML Neb Soln NEB SCH ×2 (02:02→08:38)
--- NOTE | 2018-01-26 06:13 | PCM.DCSUM1 ---
Discharge Summary - Hospital Course HPI Initial Comments: 57 year old female with failed antibiotic therapy initially prescribed for eva media; she was seen on two occasions in the ED as well as onec by her PCP. The symptoms have been progressing; she currently describes symptoms that have worsened over 24-48 hours of N/V, F/C as well as malaise. She has had a productive cough of yellow sputum for at least one week. The patient works around [employer], thus sick contact can not be excluded. Her PCP as well as the ED MD documented a perforated right TM. CT of chest confirmed possible LLL infiltrate suggested by a CXR. She received the influenza vaccine this past winter. - Discharge Data Discharge Date: 01/26/18 (Admit Date: 01/20/18) Discharge Disposition: Home, Self-Care 01 Condition: Good - Discharge Diagnosis/Problem(s) (1) Pneumonia SNOMED Code(s): 131729642 ICD Code: J18.9 - PNEUMONIA, UNSPECIFIED ORGANISM Status: Acute Current Visit: Yes Qualifiers: Pneumonia type: due to Pneumococcus Laterality: left Lung location: lower lobe of lung Qualified Code(s): J13 - Pneumonia due to Streptococcus pneumoniae (2) Right otitis media SNOMED Code(s): 27644093 ICD Code: H66.91 - OTITIS MEDIA, UNSPECIFIED, RIGHT EAR Status: Acute Priority: High Current Visit: Yes Qualifiers: Otitis media type: serous Chronicity: acute Recurrence: not specified as recurrent Qualified Code(s): H65.01 - Acute serous otitis media, right ear (3) Tympanic membrane perforation SNOMED Code(s): 48062863 ICD Code: H72.90 - UNSP PERFORATION OF TYMPANIC MEMBRANE, UNSPECIFIED EAR Status: Acute Priority: High Current Visit: Yes Qualifiers: Laterality: right Qualified Code(s): H72.91 - Unspecified perforation of tympanic membrane, right ear (4) Acute serous otitis media, right ear SNOMED Code(s): 816277465 ICD Code: H65.01 - ACUTE SEROUS OTITIS MEDIA, RIGHT EAR Status: Acute Current Visit: No (5) Viral URI with cough SNOMED Code(s): 933810444 ICD Code: J06.9 - ACUTE UPPER RESPIRATORY INFECTION, UNSPECIFIED; B97.89 - OTH VIRAL AGENTS THE CAUSE OF DISEASES CLASSD ELSWHR Status: Acute Current Visit: No (6) Hypokalemia SNOMED Code(s): 19618023 ICD Code: E87.6 - HYPOKALEMIA Status: Resolved Priority: High Current Visit: Yes (7) Respiratory syncytial virus (RSV) infection SNOMED Code(s): 75755420 ICD Code: B97.4 - RESPIRATORY SYNCYTIAL VIRUS CAUSING DISEASES CLASSD ELSWHR Status: Acute Priority: High Current Visit: Yes - Patient Summary/Data Consults: Consultations 01/23/18 11:48 Consult to Physical Therapy [PT Evaluation and Treatment] [CONS] Routine 01/25/18 12:25 Consult to Dietary [Consult to Valve Repairer] [CONS] Routine Labs Pending at D/C: None Recommended Follow-up Testing/Procedures: Follow-up with PCP within 10-14 days, sooner if needed. Recommend follow-up CXR at that time. Suggest sleep apnea screening with PCP Hospital Course: I/P: Acute: Pneumococcal Pneumonia and RSV, Improving -Productive cough w/ yellow sputum x2 weeks, Nasal congestion, Rhinorrhea, N/ V/D, fever 101.1 in the ED. -Hypoxia in ED 88%--> resolved now -CXR (01/21/18) : LLL infiltrate -WBC 14.84-->13.58-->12.21-->11.46-->10.53, Neutrophils 86%, Lactic acid 2.2 -CRP: 33.4-->21.3-->11.9-->8.4-->7.6 -Rocephin given in ED--> D/C -Empiric treatment: Levoquin and Zosyn--> D/C Zosyn-->Start PO Levoquin -IVF -Advance diet as tolerated, antiemetic, scopolamine patch -Duo-nebs, RT/IS/Acapella -RVP--> Positive RSV -Positive pneumococcal pneumonia -Blood cultures--> negative -Sputum culture--> yeast, on Florastor -Repeat CXR 01/24/18--> Stable LLL infiltrate, Small left/minimal right sided pleural effusion Acute otitis media/Ruptured right TM, improving -Seen and treated in Clinic prior to arrival -Continue at home RX drops -Monitor Resolved: Hypokalemia -3.4-->3.1-->3.7 today -Monitor and supplement as needed Nocturnal hypoxia, query sleep apnea -92% on RA now -Recommend F/U with PCP Vertigo, acute on Chronic -Takes OTC Dramamine PRN -PT evaluation for dizziness/nausea, tympanic membrane rupture - no recommendations Chronic: HTN -Continue at-home Lisinopril -Hydralazine PRN -Dyazide Q daily -DASH diet consult Plan: Admit to Med surg Resp infect work up Droplet Isolation PT evaluation for dizziness/nausea, tympanic membrane rupture Daily Labs Home meds DVT/GI prophylaxis Code status: full code, PCP: Yana Dominique, MARYANN-Fred Most likely D/C Home tomorrow pending clinical disposition LOS >96 Hrs due to slow response to treatment. Need for continued IV antibiotics. Overall Fatou did quite well. Her labs continued to trend downward and her follow -up CXR remained stable. She was somewhat hypertensive and was started on Dyazide. She was instructed to take her BP TID and keep a journal of this. She should take this with to all appointments. She has been getting a probiotic and was given a prescription for that as well. Valve Repairer was consulted for DASH diet and low fat diet. She can continue to use her IS and Acapella until symptoms resolve. She was positive for RSV and Pneumococal pneumonia. She will be discharged on 5 days oral levaquin. Recommend follow-up with PCP within 10- 14 days. Recommend repeat CXR at that time. She was instructed to take her BP TID and keep a journal, bringing this with to all medical appointments. Her lipid panel was obtained and showed triglycerides of 212, LDL of 146, and HDL of 40. This should be re-checked by PCP in 3 months. She will be discharged today. Can return to work on 01/30/18 if feeling better. - Patient Instructions Diet: Heart Healthy Diet Activity: As Tolerated Driving: Do Not Drive (today ) Notify Provider of: Fever, Increased Pain, Nausea and/or Vomiting - Discharge Plan Prescriptions/Med Rec: HCTZ/Triamterene [Dyazide 25-37.5 MG] 1 each PO DAILY #20 cap Levofloxacin [Levaquin] 750 mg PO DAILY #5 tablet Saccharomyces Boulardii [Florastor] 250 mg PO DAILY #20 cap Home Medications: Home Meds Lisinopril 10 mg PO DAILY 01/19/18 [History] Ciprofloxacin HCl/Dexameth [Ciprodex Otic Suspension] 4 drop EARRT BID 01/20/18 [History] Escitalopram [Lexapro] 20 mg PO DAILY 01/20/18 [History] Oxymetazoline HCl [Nasal [place]] 1 spray NS BID 01/20/18 [History] Sodium Chloride [Saline Nasal [place]] 1 spray NS ASDIRECTED PRN 01/20/18 [History ] Nabumetone [Relafen] 500 mg PO Q12H PRN 01/23/18 [History] HCTZ/Triamterene [Dyazide 25-37.5 MG] 1 each PO DAILY #20 cap 01/26/18 [Rx] Levofloxacin [Levaquin] 750 mg PO DAILY #5 tablet 01/26/18 [Rx] Saccharomyces Boulardii [Florastor] 250 mg PO DAILY #20 cap 01/26/18 [Rx] Referrals: Yana Dominique, [employer] [Primary Care Provider] - - Discharge Summary/Plan Comment DC Time >30 min.: Yes (40 mins ) - General Info Date of Service: 01/26/18 Admission Dx/Problem (Free Text: Admission Diagnosis/Problem Admission Diagnosis/Problem Sepsis Subjective Update: In to see Fatou. She is sitting up in bed and talking with her . She is doing well. No complaints or concerns. Nursing has no concerns. We discussed discharge plan and home medications. We discussed her BP. Her lipid panel is elevated and we discussed this as well. She will be discharged home today. Functional Status: Reports: Pain Controlled, Tolerating Diet, Ambulating, Urinating, Incentive Spirometry, Other (Acapella). Denies: New Symptoms - Review of Systems General: Denies: Fever, Weakness, Fatigue, Malaise, Chills, Night Sweats HEENT: Reports: Ear Pain (improving). Denies: Headaches, Sore Throat, Rhinitis , Visual Changes Pulmonary: Reports: Cough. Denies: Shortness of Breath, Sputum, Wheezing Cardiovascular: Reports: No Symptoms. Denies: Chest Pain, Palpitations, Edema, Lightheadedness Gastrointestinal: Reports: No Symptoms. Denies: Abdominal Pain, Constipation, Diarrhea, Nausea, Vomiting Genitourinary: Reports: No Symptoms Musculoskeletal: Reports: No Symptoms Skin: Reports: No Symptoms Neurological: Reports: No Symptoms Psychiatric: Reports: No Symptoms - Patient Data Vitals - Most Recent: Last Vital Signs Temp 98.1 F 01/26/18 02:47 Pulse 96 01/26/18 02:47 Resp 16 01/26/18 02:47 BP 128/74 01/26/18 02:47 Pulse Ox 91 L 01/26/18 02:47 Orthostatic Blood Pressure [ 124/64 Standing] Orthostatic Blood Pressure [ 126/58 Supine] Weight - Most Recent: 159 lb 12.8 oz I&O - Last 24 hours: Intake & Output 01/25/18 01/25/18 01/26/18 14:59 22:59 06:59 Intake Total 320 1840 800 Output Total 2650 3750 Balance 320 -810 -2950 Lab Results - Last 24 hrs: Laboratory Results - last 24 hr 01/25/18 01/25/18 01/25/18 Range/Units 08:10 08:10 08:10 WBC 10.53 H (3.98-10.04) K/mm3 RBC 4.27 (3.98-5.22) M/mm3 Hgb 12.8 (11.2-15.7) gm/L Hct 38.8 (34.1-44.9) % MCV 90.9 (79.4-94.8) fl MCH 30.0 (25.6-32.2) pg MCHC 33.0 (32.2-35.5) g/dl RDW Std Deviation 48.6 H (36.4-46.3) fL Plt Count 391 H (182-369) K/mm3 MPV 9.4 (9.4-12.3) fl Neut % (Auto) 63.7 (34.0-71.1) % Lymph % (Auto) 16.9 L (19.3-51.7) % [place] % (Auto) 8.6 (4.7-12.5) % Eos % (Auto) 1.9 (0.7-5.8) Baso % (Auto) 0.4 (0.1-1.2) % Neut # (Auto) 6.70 H (1.56-6.13) K/mm3 Lymph # (Auto) 1.78 (1.18-3.74) K/mm3 [place] # (Auto) 0.91 H (0.24-0.36) K/mm3 Eos # (Auto) 0.20 (0.04-0.36) K/mm3 Baso # (Auto) 0.04 (0.01-0.08) K/mm3 Manual Slide Review Abnormal smear Sodium 139 (136-145) mEq/L Potassium 3.7 (3.5-5.1) mEq/L Chloride 102 (98-107) mEq/L Carbon Dioxide 23 (21-32) mEq/L Anion Gap 17.7 H (5-15) BUN 14 (7-18) mg/dL Creatinine 1.0 (0.55-1.02) mg/dL Est Cr Clr Drug Dosing 54.89 mL/min Estimated GFR (MDRD) 58 (>60) mL/min BUN/Creatinine Ratio 14.0 (14-18) Glucose 153 H (74-106) mg/dL Lactic Acid 1.7 (0.4-2.0) mmol/L Calcium 9.4 (8.5-10.1) mg/dL Magnesium 2.0 (1.8-2.4) mg/dl C-Reactive Protein 7.6 H* (<1.0) mg/dL BUBBA Results - Last 24 hrs: Microbiology 01/20/18 06:10 Aerobic Blood Culture - Preliminary Blood - Venous NO GROWTH AFTER 6 DAYS Anaerobic Blood Culture - Preliminary NO GROWTH AFTER 6 DAYS 01/21/18 17:50 Aerobic Blood Culture - Preliminary Blood - Venous - Lab Draw NO GROWTH AFTER 4 DAYS Anaerobic Blood Culture - Preliminary NO GROWTH AFTER 4 DAYS 01/21/18 17:35 Aerobic Blood Culture - Preliminary Blood - Venous NO GROWTH AFTER 4 DAYS Anaerobic Blood Culture - Preliminary NO GROWTH AFTER 4 DAYS 01/23/18 22:30 Gram Stain - Final Sputum - Expectorated Sputum Culture - Preliminary Yeast Isolated 01/20/18 06:20 Aerobic Blood Culture - Preliminary Blood - Venous - Lab Draw NO GROWTH AFTER 5 DAYS Anaerobic Blood Culture - Preliminary NO GROWTH AFTER 5 DAYS Med Orders - Current: Current Medications Acetaminophen (Tylenol) 650 mg PO Q6H PRN PRN Reason: Pain/Fever Last Admin: 01/24/18 16:34 Dose: 650 mg Albuterol (Proventil Neb Soln) 1.25 mg NEB Q4HRRT PRN PRN Reason: Shortness of Breath Citalopram Hydrobromide (Celexa) [address] [facility] Last Admin: 01/25/18 20:02 Dose: 40 mg Enoxaparin Sodium (Lovenox) [address] [facility] Last Admin: 01/25/18 09:22 Dose: 40 mg Famotidine (Pepcid) [address] [facility] Last Admin: 01/25/18 20:02 Dose: 20 mg Guaifenesin/Phenylephrine HCl (Robitussin Dm) 10 ml PO QID PRN PRN Reason: cough Last Admin: 01/21/18 13:54 Dose: 10 ml Hydralazine HCl (Apresoline) 20 mg IVPUSH Q6H PRN PRN Reason: Hypertension Last Admin: 01/24/18 09:29 Dose: 20 mg Ipratropium [place] (Atrovent) 0.[address] [facility] Last Admin: 01/26/18 02:02 Dose: Not Given Levofloxacin (Levaquin) [address] [facility] Last Admin: 01/25/18 18:18 Dose: 750 mg Lisinopril (Prinivil) [address] [facility] Last Admin: 01/25/18 09:22 Dose: 10 mg Metoclopramide HCl (Reglan) 10 mg IVPUSH Q6H PRN PRN Reason: Nausea/Vomiting Last Admin: 01/21/18 23:09 Dose: 10 mg Miscellaneous Information (Remove Patch) [address] [facility] Last Admin: 01/25/18 10:46 Dose: Not Given Ondansetron HCl (Zofran) 4 mg IVPUSH Q8H PRN PRN Reason: Nausea/Vomiting Last Admin: 01/22/18 18:27 Dose: 4 mg Ciprofloxacin/Dexamethasone Otic Susp. [address] [facility] Last Admin: 01/25/18 20:03 Dose: 4 each Saccharomyces Boulardii (Florastor) [address] [facility] Last Admin: 01/25/18 09:22 Dose: 250 mg Scopolamine (Transderm-Scop) 1.5 mg TRDERM Q72H PRN PRN Reason: Nausea/Vomiting Last Admin: 01/22/18 11:37 Dose: 1.5 mg Temazepam (Restoril) 7.5 mg PO BEDTIME PRN PRN Reason: Insomnia Last Admin: 01/24/18 20:43 Dose: 7.5 mg Triamterene/HCTZ (Dyazide 25-37.5 Mg) 1 each PO DAILY SARAH Last Admin: 01/25/18 15:17 Dose: 1 each Discontinued Medications Acetaminophen (Tylenol) 975 mg PO NOW ONE Stop: 01/20/18 08:00 Last Admin: 01/20/18 08:05 Dose: 975 mg Al Hydroxide/Mg Hydroxide (Mag-Al Plus) 30 ml PO ONETIME ONE Stop: 01/24/18 07:26 Last Admin: 01/24/18 08:21 Dose: 30 ml Albuterol (Proventil Neb Soln) 2.5 mg NEB Q4HRRT PRN PRN Reason: Shortness of Breath Last Admin: 01/21/18 17:46 Dose: 2.5 mg Albuterol/Ipratropium (Duoneb 3.0-0.5 Mg/3 Ml) 3 ml NEB QID PRN PRN Reason: Shortness of Breath Albuterol/Ipratropium (Duoneb 3.0-0.5 Mg/3 Ml) 3 ml NEB QIDRT SARAH Last Admin: 01/22/18 15:57 Dose: 3 ml Azithromycin (Zithromax) 500 mg IV Q24H SARAH Citalopram Hydrobromide (Celexa) 40 mg PO DAILY SARAH Furosemide (Lasix) 10 mg IVPUSH ONETIME ONE Stop: 01/22/18 07:01 Last Admin: 01/22/18 07:26 Dose: 10 mg Sodium Chloride (Normal Saline) 1,000 mls @ 999 mls/hr IV ONETIME ONE Stop: 01/20/18 06:16 Last Admin: 01/20/18 05:20 Dose: 999 mls/hr Magnesium Sulfate 2 gm/ Premix 50 mls @ 50 mls/hr IV ONETIME ONE Stop: 01/20/18 06:48 Last Admin: 01/20/18 06:49 Dose: 50 mls/hr Sodium Chloride (Normal Saline) 500 mls @ 300 mls/hr IV .BOLUS ONE Stop: 01/20/18 08:24 Last Admin: 01/20/18 06:48 Dose: 300 mls/hr Sodium Chloride (Normal Saline) Confirm Administered Dose 1,000 mls @ as directed .ROUTE .STK-MED ONE Stop: 01/20/18 06:45 Last Admin: 01/20/18 06:49 Dose: Not Given Ceftriaxone Sodium 2 gm/ (Sodium Chloride) 100 mls @ 100 mls/hr IV ONETIME ONE Stop: 01/20/18 08:39 Last Admin: 01/20/18 08:01 Dose: 100 mls/hr Sodium Chloride (Normal Saline) 650 mls @ 1,000 mls/hr IV ASDIRECTED [facility] Sodium Chloride (Normal Saline) 1,000 mls @ 100 mls/hr IV ASDIRECTED [facility] Last Admin: 01/20/18 09:29 Dose: 100 mls/hr Sodium Chloride (Normal Saline) 1,000 mls @ 999 mls/hr IV Q1H [facility] Stop: 01/20/18 13:59 Last Admin: 01/20/18 14:02 Dose: 999 mls/hr Azithromycin 500 mg/ Sodium (Chloride) 250 mls @ 250 mls/hr IV Q24H [facility] Last Admin: 01/21/18 11:08 Dose: 250 mls/hr Sodium Chloride (Normal Saline) 1,000 mls @ 150 mls/hr IV ASDIRECTED [facility] Last Admin: 01/21/18 03:41 Dose: 150 mls/hr Ceftriaxone Sodium 2 gm/ (Sodium Chloride) 100 mls @ 200 mls/hr IV Q24H [facility] Last Admin: 01/21/18 11:47 Dose: Not Given Ceftriaxone Sodium 2 gm/ (Dextrose/Water) 100 mls @ 200 mls/hr IV Q24H [facility] Last Admin: 01/21/18 08:54 Dose: 200 mls/hr Levofloxacin/Dextrose 750 mg/ (Premix) 150 mls @ 100 mls/hr IV Q24H [facility] Stop: 01/25/18 12:00 Last Admin: 01/24/18 18:00 Dose: 100 mls/hr Sodium Chloride (Sodium Chloride 0.45%) 1,000 mls @ 75 mls/hr IV ASDIRECTED [facility] Last Admin: 01/21/18 21:35 Dose: 75 mls/hr Vancomycin HCl 1 gm/ Sodium (Chloride) 250 mls @ 250 mls/hr IV ONETIME ONE Stop: 01/21/18 21:14 Last Admin: 01/21/18 20:35 Dose: 250 mls/hr Piperacillin Sod/Tazobactam (Sod 4.5 gm/ Sodium Chloride) 100 mls @ 25 mls/hr IV Q8H [facility] Last Admin: 01/22/18 19:44 Dose: Not Given Piperacillin Sod/Tazobactam (Sod 4.5 gm/ Sodium Chloride) 100 mls @ 200 mls/hr IV ONETIME ONE Stop: 01/22/18 10:29 Last Admin: 01/22/18 10:55 Dose: 200 mls/hr Piperacillin Sod/Tazobactam (Sod 4.5 gm/ Sodium Chloride) 100 mls @ 25 mls/hr IV Q8H [facility] Last Admin: 01/24/18 05:32 Dose: 25 mls/hr Potassium Chloride 10 meq/ (Premix) 100 mls @ 100 mls/hr IV Q1H [facility] Stop: 01/23/18 15:59 Last Admin: 01/24/18 04:35 Dose: Not Given Levalbuterol HCl (Xopenex) 1.[address] [facility] Last Admin: 01/23/18 06:30 Dose: Not Given Lorazepam (Ativan) 1 mg IVPUSH ONETIME ONE Stop: 01/21/18 17:18 Last Admin: 01/21/18 17:41 Dose: 0.5 mg Metoclopramide HCl (Reglan) 10 mg IVPUSH BID@0600,2100 [facility] Last Admin: 01/24/18 05:32 Dose: 10 mg Morphine Sulfate (Morphine) 1 mg IVPUSH ONETIME ONE Stop: 01/21/18 17:44 Last Admin: 01/21/18 18:28 Dose: 1 mg Potassium Chloride (Klor-Con M20) 40 meq PO DAILY ONE Stop: 01/23/18 12:31 Last Admin: 01/23/18 12:47 Dose: 40 meq Potassium Chloride (Klor-Con M20) [address] [facility] Stop: 01/23/18 21:01 Last Admin: 01/24/18 04:29 Dose: Not Given - Exam Quality Assessment: Reports: DVT Prophylaxis General: Reports: Alert, Oriented, Cooperative, No Acute Distress HEENT: Reports: Pupils Equal, Pupils Reactive, EOMI, Mucous Membr. Moist/[place] Neck: Reports: Supple, Trachea Midline, No JVD Lungs: Reports: Clear to Auscultation, Normal Respiratory Effort, Decreased Breath Sounds Cardiovascular: Reports: Regular Rate, Regular Rhythm GI/Abdominal Exam: Normal Bowel Sounds, Soft, Non-Tender, No Organomegaly, No Distention, No Abnormal Bruit, No Mass, Pelvis Stable (Female) Exam: Deferred Rectal (Female) Exam: Deferred Back Exam: Reports: Normal Inspection, Full Range of Motion Extremities: Normal Inspection, Normal Range of Motion, Non-Tender, No Pedal Edema, Normal Capillary Refill Skin: Reports: Warm, Dry, Intact Neurological: Reports: No New Focal Deficit Psy/Mental Status: Reports: Alert, Normal Affect, Normal Mood
[2018-01-26] MEDS: CIPROFLOXACIN EARRT SCH (09:16)
[2018-01-26] MEDS: Saccharomyces Boulardii (Probiotic) 250 MG Cap PO SCH (09:16)
[2018-01-26] MEDS: Enoxaparin 40 MG/0.4 ML Syringe SUBCUT SCH (09:16)
[2018-01-26] MEDS: DEXAMETHASONE EARRT SCH (09:16)
[2018-01-26] MEDS: Hydrochlorothiazide/Triamterene 25-37.5 MG Cap PO SCH (09:17)
[2018-01-26] MEDS: Famotidine 20 MG Tab PO SCH (09:17)
[2018-01-26] MEDS: Lisinopril 10 MG Tab PO SCH (09:17)
== END 2018-01-26 09:35 | disposition home or self-care (01) | DRG 720 ==
LOC: JD.ED 04:33 → JD.MS 10:09
PROVIDERS: ADMIT Internal Medicine Cardiovascular Disease; ATTEND Internal Medicine Cardiovascular Disease
DX: A41.9 Sepsis, unspecified organism (principal); J13 Pneumonia due to Streptococcus pneumoniae; B97.4 Respiratory syncytial virus as the cause of diseases classified elsewhere; H72.91 Unspecified perforation of tympanic membrane, right ear; H65.01 Acute serous otitis media, right ear; J06.9 Acute upper respiratory infection, unspecified; E87.6 Hypokalemia; R09.02 Hypoxemia; R42 Dizziness and giddiness; I10 Essential (primary) hypertension; K21.9 Gastro-esophageal reflux disease without esophagitis; F41.9 Anxiety disorder, unspecified; F32.9 Major depressive disorder, single episode, unspecified; J30.9 Allergic rhinitis, unspecified; J32.9 Chronic sinusitis, unspecified; H04.129 Dry eye syndrome of unspecified lacrimal gland; Z90.710 Acquired absence of both cervix and uterus; Z87.440 Personal history of urinary (tract) infections; Z91.040 Latex allergy status; Z79.899 Other long term (current) drug therapy
CPT/HCPCS: 36415; 71045; 71045-26; 71046; 71046-26; 71260; 71260-26; 80048; 80053; 80061; 82962; 83605; 83735; 85025; 86140; 86738; 87040; 87070; 87081; 87205; 87430; 87486; 87581; 87633; 87798; 87804; 87899; 93005; 93010; 94640; 94667; 94760; 94761; 96361; 96365; 96367; 97161-GP; 99285-25; A9270-GY; J0360; J0456; J0696; J1650; J1956; J2060; J2270; J2405; J2543; J2765; J3370; J3475; J3480; J7030; J7040; J7050; J7060; J7612

== ENCOUNTER 2024-11-22 07:04 | Day surgery (SDC) | payer BC ==
[~2024-11-22 07:04] MED LIST: Sodium Chloride 0.9% 10 ML Syringe FLUSH PRN; Sodium Chloride 0.9% 10 ML Syringe FLUSH SCH
[2024-11-22] MEDS: Lactated Ringers 1,000 ML IV SCH (07:30)
[2024-11-22] MEDS ORDERED: Lidocaine 2% 5 ML SDV ONE (08:01)
[2024-11-22] MEDS ORDERED: Glycopyrrolate 0.2 MG/ML 2 ML SDV ONE (08:01)
[2024-11-22] MEDS ORDERED: Propofol 200 MG/20 ML SDV ONE (08:02)
[2024-11-22] MEDS ORDERED: Ondansetron 4 MG/2 ML SDV ONE (09:55)
== END 2024-11-22 10:20 | disposition home or self-care (01) ==
LOC: JD.SDS 07:04
PROVIDERS: ATTEND Surgery
DX: Z12.11 Encounter for screening for malignant neoplasm of colon (principal); K44.9 Diaphragmatic hernia without obstruction or gangrene; F32.A Depression, unspecified; K21.9 Gastro-esophageal reflux disease without esophagitis; I10 Essential (primary) hypertension; E78.5 Hyperlipidemia, unspecified; Z79.899 Other long term (current) drug therapy; Z88.8 Allergy status to other drugs, medicaments and biological substances; Z91.040 Latex allergy status
CPT/HCPCS: 43239; 45378; C9777; J1596; J2003; J2704; J7120; 00813

== ENCOUNTER 2025-01-03 07:20 | Observation (INO) | payer BC ==
[~2025-01-03 07:20] MED LIST changes: +Dexamethasone 4 MG/ML 5 ML MDV ONE; +Ondansetron 4 MG/2 ML SDV ONE; +Propofol 200 MG/20 ML SDV ONE; +Rocuronium 50 MG/5 ML Vial ONE; -Sodium Chloride 0.9% 10 ML Syringe FLUSH SCH; +dexmedeTOMIDine HCl 200 MCG/2 ML SDV ONE; +fentaNYL 250 MCG/5 ML SDV ONE
[2025-01-03] MEDS: Lactated Ringers 1,000 ML IV SCH (07:50)
[2025-01-03] MEDS ORDERED: ceFAZolin 2 GM Vial ONE (08:06)
[2025-01-03] MEDS ORDERED: Propofol 200 MG/20 ML SDV ONE ×4 (08:18→09:19)
[2025-01-03] MEDS ORDERED: Ketorolac 30 MG/ML SDV ONE (08:35)
[2025-01-03] MEDS ORDERED: HYDROmorphone 0.5 MG/0.5 ML Syringe ONE ×2 (08:36)
[2025-01-03] MEDS ORDERED: Labetalol 100 MG/20 ML MDV ONE (08:42)
[2025-01-03] MEDS ORDERED: Lactated Ringers 1,000 ML ONE (08:47)
[2025-01-03] MEDS: Acetaminophen 325 MG Tab PO ONE (08:47)
[2025-01-03] MEDS ORDERED: fentaNYL 100 MCG/2 ML SDV ONE (08:57)
[2025-01-03] MEDS ORDERED: Rocuronium 50 MG/5 ML Vial ONE (09:02)
[2025-01-03] MEDS ORDERED: Metoprolol Tartrate 5 MG/5 ML SDV ONE (09:16)
[2025-01-03] MEDS: EPINEPHrine 1 MG/ML SDV ONE (09:22)
[2025-01-03] MEDS: Bupivacaine 0.5% 30 ML SDV ONE (09:22)
[2025-01-03] MEDS ORDERED: Sugammadex Sodium 200 MG/2 ML VIAL IV ONE ×2 (09:49→11:57)
[2025-01-03] MEDS ORDERED: Ondansetron 4 MG/2 ML SDV ONE (09:57)
[2025-01-03] MEDS ORDERED: Acetaminophen 325 MG Tab PO PRN (11:06)
[2025-01-03] MEDS ORDERED: HYDROmorphone 0.5 MG/0.5 ML Syringe IVPUSH PRN ×2 (11:06→11:46)
[2025-01-03] MEDS ORDERED: Promethazine 25 MG Tab PO PRN (11:06)
[2025-01-03] MEDS ORDERED: Benzocaine/Cetylpyridinium/Menthol Lozenge MUCMEM PRN (11:12)
[2025-01-03] MEDS ORDERED: Simethicone 80 MG Tab.Chew PO PRN (11:12)
[2025-01-03] MEDS ORDERED: diphenhydrAMINE 50 MG/ML SDV IVPUSH PRN (11:13)
[2025-01-03] MEDS: fentaNYL 100 MCG/2 ML SDV IVPUSH PRN (12:47)
[2025-01-03] MEDS: oxyCODONE 5 MG Tab PO PRN (16:59)
[2025-01-03] MEDS: Ondansetron 4 MG/2 ML SDV IV PRN (17:00)
[2025-01-03] MEDS: Sodium Chloride 0.9% 10 ML Syringe FLUSH SCH (17:42)
[2025-01-03] MEDS: Ketorolac 15 MG/ML SDV IVPUSH SCH (18:57)
[2025-01-04] MEDS: Lactated Ringers 1,000 ML IV SCH (00:24)
[2025-01-04 04:37] LABS: HEMATOCRIT 38.9 % (37.0-47.0); HEMOGLOBIN 12.8 gm/dl (12.0-16.0); IMMATURE GRAN ABSOLUTE AUTO 0.05 K/mm3 (0.00-0.05); IMMATURE GRAN PERCENT AUTO 0.4 % (0.0-0.4); LYMPHOCYTES ABSOLUTE AUTO 0.7 K/mm3 (1.0-4.8); LYMPHOCYTES PERCENT AUTO 5.5 % (24.0-44.0); MEAN CORPUSCULAR HEMOGLOBIN 29.7 pg (28.0-32.0); MEAN CORPUSCULAR HGB CONC 32.9 g/dl (32.0-36.0); MEAN CORPUSCULAR VOLUME 90.3 fl (83.0-99.0); MEAN PLATELET VOLUME 9.7 fl (9.4-12.3); MONOCYTES ABSOLUTE AUTO 0.7 K/mm3 (0.0-0.8); MONOCYTES PERCENT AUTO 5.7 % (0.0-8.0); NEUTROPHILS ABSOLUTE AUTO 11.2 K/mm3 (1.8-7.7); NEUTROPHILS PERCENT AUTO 88.4 % (41.0-71.0); PLATELET COUNT,PLT 188 K/mm3 (150-400); RED BLOOD CELL COUNT 4.31 M/mm3 (4.10-5.30); WHITE BLOOD CELL COUNT,WBC 12.72 K/mm3 (3.9-11.3)
[2025-01-04 04:54] LABS: ANION GAP 13.9 (5-15); BUN/CREATININE RATIO 11.7 (14-18); CALCIUM 8.9 mg/dL (8.5-10.1); CREATININE 1.2 mg/dL (0.55-1.02); EST CRCL DRUG DOSING (CG) 41.97 mL/min; POTASSIUM,K 4.9 mEq/L (3.5-5.1)
[2025-01-04] MEDS: Sertraline 50 MG Tab PO SCH (09:25)
[2025-01-04] MEDS: Pravastatin 20 MG Tab PO SCH (09:26)
== END 2025-01-04 12:45 | disposition home or self-care (01) ==
LOC: JD.MS 07:20 → INTOOBSV 07:20
PROVIDERS: ADMIT Surgery; ATTEND Surgery
DX: K44.9 Diaphragmatic hernia without obstruction or gangrene (principal)
CPT/HCPCS: 36415; 80048; 85025; 94760; 94761; A9270-GY; J0171; J0665; J0690; J1100; J1885; J1920; J2405; J2704; J3010; J3490; J7120

== ENCOUNTER 2025-03-19 07:51 | Inpatient (IN) | payer BC ==
[~2025-03-19 07:51] MED LIST changes: -Dexamethasone 4 MG/ML 5 ML MDV ONE; -Ondansetron 4 MG/2 ML SDV ONE; -Propofol 200 MG/20 ML SDV ONE; -Rocuronium 50 MG/5 ML Vial ONE; -dexmedeTOMIDine HCl 200 MCG/2 ML SDV ONE; -fentaNYL 250 MCG/5 ML SDV ONE
[2025-03-19] MEDS ORDERED: propofoL 500 MG/50 ML 50 ML ONE (07:53)
[2025-03-19] MEDS ORDERED: Ondansetron 4 MG/2 ML SDV ONE (07:53)
[2025-03-19] MEDS ORDERED: fentaNYL 250 MCG/5 ML SDV ONE (07:53)
[2025-03-19] MEDS ORDERED: Midazolam 1 MG/ML 2 ML SDV ONE (07:53)
[2025-03-19] MEDS ORDERED: dexmedeTOMIDine HCl 200 MCG/2 ML SDV ONE (07:53)
[2025-03-19] MEDS ORDERED: ePHEDrine 50 MG/ML SDV ONE (08:32)
[2025-03-19] MEDS: Lactated Ringers 1,000 ML IV SCH (08:41)
[2025-03-19] MEDS ORDERED: Dexamethasone 4 MG/ML 5 ML MDV ONE (08:44)
[2025-03-19] MEDS ORDERED: Esmolol 100 MG/10 ML SDV ONE (08:56)
[2025-03-19] MEDS ORDERED: Ketamine HCL/NACL, ISO-OSM 50 MG/5 ML Syringe ONE (09:18)
[2025-03-19] MEDS ORDERED: Lactated Ringers 1,000 ML ONE (09:29)
[2025-03-19] MEDS: EPINEPHrine 1 MG/ML SDV ONE (09:40)
[2025-03-19] MEDS ORDERED: Propofol 200 MG/20 ML SDV ONE (09:53)
[2025-03-19] MEDS ORDERED: fentaNYL 100 MCG/2 ML SDV IVPUSH PRN (10:50)
[2025-03-19] MEDS ORDERED: Ondansetron 4 MG/2 ML SDV IVPUSH PRN (10:50)
[2025-03-19] MEDS ORDERED: diphenhydrAMINE 50 MG/ML SDV IVPUSH PRN (11:41)
[2025-03-19] MEDS ORDERED: Benzocaine/Cetylpyridinium/Menthol Lozenge MUCMEM PRN (11:42)
[2025-03-19] MEDS: Sodium Chloride 0.9% 10 ML Syringe FLUSH SCH (15:10)
[2025-03-19] MEDS: Acetaminophen Soln 650 MG/20.3 ML UD Cup PO ONE (15:10)
[2025-03-20 04:51] LABS: BASOPHILS ABSOLUTE AUTO 0.0 K/mm3 (0.0-0.2); BASOPHILS PERCENT AUTO 0.1 % (0.0-1.0); EOSINOPHILS ABSOLUTE AUTO 0.0 K/mm3 (0.0-0.4); EOSINOPHILS PERCENT AUTO 0.0 % (0.0-6.0); IMMATURE GRAN ABSOLUTE AUTO 0.05 K/mm3 (0.00-0.05); IMMATURE GRAN PERCENT AUTO 0.4 % (0.0-0.4); LYMPHOCYTES ABSOLUTE AUTO 0.5 K/mm3 (1.0-4.8); LYMPHOCYTES PERCENT AUTO 4.8 % (24.0-44.0); MEAN PLATELET VOLUME 9.4 fl (9.4-12.3); MONOCYTES ABSOLUTE AUTO 0.5 K/mm3 (0.0-0.8); MONOCYTES PERCENT AUTO 4.4 % (0.0-8.0); NEUTROPHILS ABSOLUTE AUTO 10.1 K/mm3 (1.8-7.7); NEUTROPHILS PERCENT AUTO 90.3 % (41.0-71.0); NRBC ABSOLUTE 0.00 (0.00-0.02); NRBC PERCENT 0.0 % (0.0-0.2); PLATELET COUNT,PLT 211 K/mm3 (150-400); RED BLOOD CELL COUNT 4.31 M/mm3 (4.10-5.30); WHITE BLOOD CELL COUNT,WBC 11.20 K/mm3 (3.9-11.3)
[2025-03-20 05:10] LABS: BLOOD UREA NITROGEN,BUN 13.0 mg/dL (7-18); CARBON DIOXIDE,CO2 24.0 mEq/L (21-32); CHLORIDE,CL 103.0 mEq/L (98-107); CREATININE 1.3 mg/dL (0.55-1.02); EST CRCL DRUG DOSING (CG) 38.75 mL/min; ESTIMATED GFR 46.0 mL/min (>60); GLUCOSE RANDOM 177.0 mg/dL (70-99); POTASSIUM,K 3.7 mEq/L (3.5-5.1); SODIUM,NA 138.0 mEq/L (136-145)
[2025-03-20] MEDS: Ondansetron 4 MG/2 ML SDV IV PRN (10:48)
== END 2025-03-20 12:30 | disposition home or self-care (01) | DRG 220 ==
LOC: JD.MS 07:51
PROVIDERS: ADMIT Surgery; ATTEND Surgery
PROC: 0BUT0JZ Supplement Diaphragm with Synthetic Substitute, Open Approach (ICD-10-PCS; principal; 2025-03-19 10:00)
PROC: 0DV40ZZ Restriction of Esophagogastric Junction, Open Approach (ICD-10-PCS; principal; 2025-03-19 10:00)
PROC: 0DH63UZ Insertion of Feeding Device into Stomach, Percutaneous Approach (ICD-10-PCS; principal; 2025-03-19 10:00)
DX: K44.9 Diaphragmatic hernia without obstruction or gangrene (principal); K21.9 Gastro-esophageal reflux disease without esophagitis; J30.9 Allergic rhinitis, unspecified; F41.9 Anxiety disorder, unspecified; M19.90 Unspecified osteoarthritis, unspecified site; F32.A Depression, unspecified; K29.70 Gastritis, unspecified, without bleeding; I10 Essential (primary) hypertension; M54.9 Dorsalgia, unspecified; E78.00 Pure hypercholesterolemia, unspecified; G89.29 Other chronic pain; K59.09 Other constipation; E61.1 Iron deficiency; K58.9 Irritable bowel syndrome, unspecified; K76.0 Fatty (change of) liver, not elsewhere classified; Z88.8 Allergy status to other drugs, medicaments and biological substances; Z79.899 Other long term (current) drug therapy; Z98.890 Other specified postprocedural states; Z90.710 Acquired absence of both cervix and uterus; Z90.49 Acquired absence of other specified parts of digestive tract
CPT/HCPCS: 36415; 80048; 85025; 94761; A9270-GY; C1781; J0171; J0665; J0690; J1100; J1171; J1805; J2003; J2250; J2405; J2704; J3010; J3490; J7120